=== PATIENT | male | born 1950 | race Caucasian/White ===

== ENCOUNTER → 2021-03-21 09:40 | Outpatient (CLI) | payer MEDICARE, OTHER, SELFPAY ==
[2021-03-21 10:37] LABS: Add Manual Diff / Slide Review NO; Basophils Absolute Auto 0 /uL (0-100); Basophils Percent Auto 0.5 % (0-2); Eosinophils Absolute Auto 100 /uL (0-450); Eosinophils Percent Auto 1.3 % (2-4); Hematocrit 48.6 % (41-53); Hemoglobin 15.9 g/dL (13.5-17.5); Lymphocytes Absolute Auto 1100 /uL (1100-4500); Lymphocytes Percent Auto 23.3 % (25-40); Mean Corpuscular HGB Conc 32.6 % (30-36); Mean Corpuscular Volume 94.9 fL (80-100); Monocytes Absolute Auto 500 /uL (0-900); Monocytes Percent Auto 10.1 % (3-14); Neutrophils Absolute Auto 3100 /uL (1500-7000); Neutrophils Percent Auto 64.8 % (50-75); Platelet Count 194 X10^3/uL (150-400); Red Blood Cell Count 5.12 X10^6/uL (4.5-5.9); Red Cell Distribution Width 15.3 % (11.6-14.8); White Blood Cell Count 4.8 X10^3/uL (4.5-11.0)
[2021-03-21 10:55] LABS: Hemoglobin A1C% w Est Avg Glu 5.4 % (4.0-6.0)
[2021-03-21 10:59] LABS: Alanine Aminotransferase 63 IU/L (<50); Albumin 4.1 g/dL (3.5-5.0); Albumin Globulin Ratio 1.5 (1.0-2.8); Alkaline Phosphatase 69 U/L (38-126); Aspartate Aminotransferase 61 IU/L (17-59); BUN Creatinine Ratio 18.9 (6-22); Bilirubin Total 0.4 mg/dL (0.2-1.3); Blood Urea Nitrogen 17 mg/dL (9-20); Calcium 9.1 mg/dL (8.4-10.2); Carbon Dioxide 31 mmol/L (22-32); Chloride 104 mmol/L (98-107); Cholesterol 111 mg/dL (140-199); Estimated Glomerular Filt Rate > 60.0 mL/min (>60); Globulin 2.8 g/dL (1.7-4.1); Glucose 89 mg/dL (80-110); HDL Cholesterol 46 mg/dL (40-60); HEMOLYSIS 22 (0-50); LDL Cholesterol Calculated 56 mg/dL (<100); Potassium 4.4 mmol/L (3.4-5.1); Sodium 138 mmol/L (137-145); Total Protein 6.9 g/dL (6.3-8.2); Triglycerides 44 mg/dL (35-150)
[2021-03-21 11:25] LABS: TSH w/ Reflex to FT4 2.19 uIU/mL (0.47-4.68)
[2021-03-21 11:29] LABS: Prostate Specific Antigen Scrn 0.905 ng/mL (0.1-4.0)
[2021-03-21 15:02] LABS: Appearance Urine UA CLEAR; Bilirubin Urine UA NEGATIVE (NEGATIVE); Color Urine UA YELLOW; Glucose Urine UA NEGATIVE (Negative); Ketones Urine UA NEGATIVE (NEGATIVE); Leukocyte Esterase Urine UA NEGATIVE (NEGATIVE); Nitrite Urine UA NEGATIVE (Negative); Occult Blood Urine UA NEGATIVE (Negative); Protein Urine UA TRACE (Negative); Urobilinogen Urine UA 0.2 E.U./dL (0.2); pH Urine UA 7.5 (4.5-8.0)
[2021-03-27 19:11] LABS: Percent Free Testosterone 4.86 % (1.50-4.20); Testosterone Free 104.16 ng/dL (5.00-21.00); Testosterone Total 2143.2 ng/dL (264.0-916.0)
== END ==
PROVIDERS: PCP Family Medicine; Referring Provider Family Medicine; Visit Provider Family Medicine
DX: R79.89 Other specified abnormal findings of blood chemistry (principal); Z12.5 Encounter for screening for malignant neoplasm of prostate; Z86.79 Personal history of other diseases of the circulatory system; G37.3 Acute transverse myelitis in demyelinating disease of central nervous system; G40.909 Epilepsy, unspecified, not intractable, without status epilepticus; I63.9 Cerebral infarction, unspecified; Z79.01 Long term (current) use of anticoagulants
CPT/HCPCS: 36415; 80053; 80061; 81003; 83036; 84402; 84403; 84443; 85025; G0103

== ENCOUNTER 2021-05-13 13:42 | Observation (INO) | payer MEDICARE, OTHER, SELFPAY ==
[2021-05-13 13:50] VITALS: BP 165/87; PULSE 54; RESP 24; TEMP 37; O2SAT 99
--- NOTE | 2021-05-13 13:58 | DI.RAD.S_ITS ---
PROCEDURE: XR CHEST 1V INDICATIONS: chest pain TECHNIQUE: One view of the chest was acquired. COMPARISON: None. FINDINGS: Surgical changes and devices: None. Lungs and pleura: Lungs are clear. No pleural effusions or pneumothorax. Calcific densities projecting to the inferior aspect of the right 7th rib. Mediastinum: Mediastinal contours appear normal. Heart size is normal. Bones and chest wall: No suspicious bony lesions. Overlying soft tissues appear unremarkable. IMPRESSION: 1. No acute cardiopulmonary disease. 2. Calcific densities projecting to the right lower lung zone overlapping the right 7th rib. Differential diagnosis include old granulomas, rib calcifications or pleural calcifications. A 2-view chest x-ray is recommended for follow-up evaluation. Dictated by: Aroldo Berger M.D. on 05/13/2021 at 15:08 Approved by: Aroldo Berger M.D. on 05/13/2021 at 15:09
[2021-05-13 14:39] LABS: Add Manual Diff / Slide Review NO; Basophils Absolute Auto 0 /uL (0-100); Basophils Percent Auto 0.4 % (0-2); Eosinophils Absolute Auto 100 /uL (0-450); Eosinophils Percent Auto 1.3 % (2-4); Hematocrit 45.2 % (41-53); Lymphocytes Absolute Auto 1300 /uL (1100-4500); Lymphocytes Percent Auto 24.9 % (25-40); Mean Corpuscular HGB Conc 33.3 % (30-36); Mean Corpuscular Hemoglobin 31.5 PG (26-34); Mean Corpuscular Volume 94.6 fL (80-100); Monocytes Absolute Auto 600 /uL (0-900); Monocytes Percent Auto 11.5 % (3-14); Neutrophils Absolute Auto 3200 /uL (1500-7000); Neutrophils Percent Auto 61.9 % (50-75); Platelet Count 174 X10^3/uL (150-400); Red Blood Cell Count 4.78 X10^6/uL (4.5-5.9); Red Cell Distribution Width 14.6 % (11.6-14.8); White Blood Cell Count 5.2 X10^3/uL (4.5-11.0)
[2021-05-13 14:52] LABS: Alanine Aminotransferase 61 IU/L (<50); Albumin 4.1 g/dL (3.5-5.0); Albumin Globulin Ratio 1.5 (1.0-2.8); Alkaline Phosphatase 67 U/L (38-126); Aspartate Aminotransferase 55 IU/L (17-59); BUN Creatinine Ratio 15.7 (6-22); Bilirubin Total 0.4 mg/dL (0.2-1.3); Blood Urea Nitrogen 14 mg/dL (9-20); Calcium 9.3 mg/dL (8.4-10.2); Carbon Dioxide 30 mmol/L (22-32); Chloride 104 mmol/L (98-107); Creatine Kinase 306 U/L (55-170); D Dimer < 200 ng/mL (<230); Estimated Glomerular Filt Rate > 60.0 mL/min (>60); Globulin 2.8 g/dL (1.7-4.1); Glucose 89 mg/dL (80-110); HEMOLYSIS < 15 (0-50); Lipase 293 U/L (23-300); Potassium 4.4 mmol/L (3.4-5.1); Sodium 139 mmol/L (137-145); Total Protein 6.9 g/dL (6.3-8.2)
[2021-05-13 15:01] LABS: NT-proBNP (BNP-Adult 18+) 100 pg/mL (<125)
[2021-05-13 15:04] LABS: Troponin I 0.019 ng/mL (0.01-0.034)
[2021-05-13 15:07] LABS: CKMB % Relative Index 2.8 % (1.5-5.0); Creatine Kinase MB 8.67 ng/mL (<2.37)
--- NOTE | 2021-05-13 15:49 | ED.DIZZY ---
HPI - Dizziness General Chief Complaint: Dizziness Stated Complaint: light headed spells Time Seen by Provider: 05/13/21 14:08 Source: patient Mode of arrival: Ambulatory History of Present Illness HPI Narrative: Patient is a 70-year-old male with history of CVA, atrial fibrillation with ablation is presenting with dizziness. He is quite active he runs at least 4 miles a day. Since May 05 every time he runs 1 mi into his run he gets dizzy and lightheaded. He needs to rest and then sometimes he is able to push through and other times not. He actually denies any chest pain or heart fluttering. He has no weakness numbness or tingling. It seems to be persistently getting worse. It is never at rest. That he really does not have any chest pain. His states that he has been asymptomatic with atrial fibrillation previously. He is currently in sinus rhythm. It also took a while for him to recognize he was having a stroke. She said he just presents differently with things. Related Data Home Medications Medication Instructions Recorded Confirmed baclofen 20 mg tablet 20 mg PO QID 10/09/20 05/13/21 carbamazepine 200 mg tablet 200 mg PO BID 10/09/20 05/13/21 gabapentin 400 mg capsule 400 mg PO QID cap 10/09/20 05/13/21 onabotulinumtoxinA [Botox] IM 10/09/20 10/09/20 atorvastatin 80 mg tablet 40 mg PO DAILY tab 10/10/20 05/13/21 warfarin 5 mg tablet 15 mg PO DAILY 05/13/21 05/13/21 Previous Rx's Medication Instructions Recorded NEEDLE #12 ea 03/19/21 Needle #12 ea 03/19/21 testosterone cypionate 200 mg/mL 200 mg IM Q2W #10 ml 04/11/21 intramuscular oil (Depo-Testosterone) Allergies Allergy/AdvReac Type Severity Reaction Status Date / Time No Known Drug Allergies Allergy Verified 10/09/20 14:12 Review of Systems Review of Systems Narrative: GENERAL: Denies chills, fatigue, malaise, fever, sweats, travel HEENT: Denies sinus pain, ear pain, sore throat, difficulty swallowing, neck pain RESPIRATORY: Denies dyspnea, cough, wheezing, hemoptysis, sputum. CARDIOVASCULAR: see HPI GASTROINTESTINAL: Denies nausea, vomiting, abdominal pain, diarrhea, constipation, melena. : Denies dysuria, frequency, incontinence, hematuria, urinary retention, flank pain. MUSCULOSKELETAL: Denies weakness, joint pain, or bony pain SKIN: No rash, no erythema, no pruritus NEUROLOGIC: dizziness. Denies weakness, headache, numbness, change in speech, confusion PSYCHIATRIC: No concerning psychosocial issues. 12 point review of systems is negative except for those stated above and HPI Patient History Medical History (Updated 05/13/21 @ 16:32 by Hawa Velez DO) Anticoagulated on warfarin Anticoagulation adequate Contusion of right elbow CVA (cerebral vascular accident) Epilepsy History of atrial fibrillation Low testosterone in male Transverse myelitis Social History household members: spouse Smoking Status: Former smoker alcohol intake: former Smoking Status: Former smoker Exam Initial Vital Signs Initial Vital Signs: Vital Signs Temperature 98.6 F 05/13/21 13:50 Pulse Rate 54 L 05/13/21 13:50 Respiratory Rate 24 05/13/21 13:50 Blood Pressure 165/87 H 05/13/21 13:50 Pulse Oximetry 99 05/13/21 13:50 GENERAL: Well-appearing active 70-year-old male HEENT: Head atraumatic,EOMI, pupils reactive, face symmetric, [moist] mucous membranes CARDIOVASCULAR: Regular rate and rhythm without murmurs, rubs or gallops. RESPIRATORY: Breath sounds equal bilaterally, no wheezes rales or rhonchi. ABDOMEN: Soft, nontender. Normoactive bowel sounds all 4 quadrants. No guarding or rebound EXTREMITIES: Normal range of motion, no clubbing or edema. Neurovascularly intact NEUROLOGICAL: Alert and oriented x4.Normal gait and speech. SKIN: Warm, dry, no laceration, no petechiae, no rashes or lesions. Course Orders Ordered: ED Orders 05/13/21 13:58 XR chest 1V Stat 05/13/21 14:08 EKG-12 Lead Stat 05/13/21 14:30 Complete Blood Count AUTO DIFF Stat Comprehensive Metabolic Panel Stat D Dimer Stat Lipase Stat NT-proBNP (BNP-Adult 18+) Stat Partial Thromboplastin Time Stat Prothrombin Time INR Stat Troponin & CK Cardiac Panel Stat 05/13/21 16:45 COVID19 - ADMIT (RUFFLING HEMMER AUTOMATIC swab/PCR) Stat Vital Signs Vital signs: Vital Signs - 8 hr 05/13/21 13:50 05/13/21 16:50 Temperature 98.6 F Pulse Rate 54 L 46 L Respiratory Rate 24 16 Blood Pressure 165/87 H 153/74 H Pulse Oximetry 99 100 MDM - Dizziness Lab Data Result diagrams: 05/13/21 14:30 05/13/21 14:30 Labs: Lab Results 05/13/21 05/13/21 05/13/21 Range/Units 14:30 14:30 14:30 WBC 5.2 (4.5-11.0) X10^3/uL RBC 4.78 (4.5-5.9) X10^6/uL Hgb 15.0 (13.5-17.5) g/dL Hct 45.2 (41-53) % MCV 94.6 (80-100) fL MCH 31.5 (26-34) PG MCHC 33.3 (30-36) % RDW 14.6 (11.6-14.8) % Plt Count 174 (150-400) X10^3/uL Neut % (Auto) 61.9 (50-75) % Lymph % (Auto) 24.9 L (25-40) % [place] % (Auto) 11.5 (3-14) % Eos % (Auto) 1.3 L (2-4) % Baso % (Auto) 0.4 (0-2) % Neut # (Auto) 3200 (5002-4830) /uL Lymph # (Auto) 1300 (4142-3076) /uL [place] # (Auto) 600 (0-900) /uL Eos # (Auto) 100 (0-450) /uL Baso # (Auto) 0 (0-100) /uL PT (10.1-12.7) SECONDS INR (0.9-1.3) APTT (26.4-36.2) SECONDS D-Dimer < 200 (<230) ng/mL Sodium 139 (137-145) mmol/L Potassium 4.4 (3.4-5.1) mmol/L Chloride 104 (98-107) mmol/L Carbon Dioxide 30 (22-32) mmol/L BUN 14 (9-20) mg/dL Creatinine 0.89 (0.66-1.25) mg/dL Estimated GFR > 60.0 (>60) mL/min BUN/Creatinine Ratio 15.7 (6-22) Glucose 89 (80-110) mg/dL Calcium 9.3 (8.4-10.2) mg/dL Total Bilirubin 0.4 (0.2-1.3) mg/dL AST 55 (17-59) IU/L ALT 61 H (<50) IU/L Alkaline Phosphatase 67 (38-126) U/L Total Creatine Kinase 306 H (55-170) U/L CK-MB (CK-2) 8.67 H (<2.37) ng/mL CK-MB (CK-2) Rel Index 2.8 (1.5-5.0) % Troponin I 0.019 (0.01-0.034) ng/mL NT-Pro-B Natriuret Pep (<125) pg/mL Total Protein 6.9 (6.3-8.2) g/dL Albumin 4.1 (3.5-5.0) g/dL Globulin 2.8 (1.7-4.1) g/dL Albumin/Globulin Ratio 1.5 (1.0-2.8) Lipase 293 (23-300) U/L SARS-CoV-2 (PCR) (Negative) 05/13/21 05/13/21 05/13/21 Range/Units 14:30 14:30 16:45 WBC (4.5-11.0) X10^3/uL RBC (4.5-5.9) X10^6/uL Hgb (13.5-17.5) g/dL Hct (41-53) % MCV (80-100) fL MCH (26-34) PG MCHC (30-36) % RDW (11.6-14.8) % Plt Count (150-400) X10^3/uL Neut % (Auto) (50-75) % Lymph % (Auto) (25-40) % [place] % (Auto) (3-14) % Eos % (Auto) (2-4) % Baso % (Auto) (0-2) % Neut # (Auto) (4491-0097) /uL Lymph # (Auto) (1703-6012) /uL [place] # (Auto) (0-900) /uL Eos # (Auto) (0-450) /uL Baso # (Auto) (0-100) /uL PT 24.8 H (10.1-12.7) SECONDS INR 2.2 H (0.9-1.3) APTT 35 (26.4-36.2) SECONDS D-Dimer (<230) ng/mL Sodium (137-145) mmol/L Potassium (3.4-5.1) mmol/L Chloride (98-107) mmol/L Carbon Dioxide (22-32) mmol/L BUN (9-20) mg/dL Creatinine (0.66-1.25) mg/dL Estimated GFR (>60) mL/min BUN/Creatinine Ratio (6-22) Glucose (80-110) mg/dL Calcium (8.4-10.2) mg/dL Total Bilirubin (0.2-1.3) mg/dL AST (17-59) IU/L ALT (<50) IU/L Alkaline Phosphatase (38-126) U/L Total Creatine Kinase (55-170) U/L CK-MB (CK-2) (<2.37) ng/mL CK-MB (CK-2) Rel Index (1.5-5.0) % Troponin I (0.01-0.034) ng/mL NT-Pro-B Natriuret Pep 100 (<125) pg/mL Total Protein (6.3-8.2) g/dL Albumin (3.5-5.0) g/dL Globulin (1.7-4.1) g/dL Albumin/Globulin Ratio (1.0-2.8) Lipase (23-300) U/L SARS-CoV-2 (PCR) Negative (Negative) Imaging Data Chest x-ray: Radiologist's Impression: PROCEDURE: XR CHEST 1V INDICATIONS: chest pain TECHNIQUE: One view of the chest was acquired. COMPARISON: None. FINDINGS: Surgical changes and devices: None. Lungs and pleura: Lungs are clear. No pleural effusions or pneumothorax. Calcific densities projecting to the inferior aspect of the right 7th rib. Mediastinum: Mediastinal contours appear normal. Heart size is normal. Bones and chest wall: No suspicious bony lesions. Overlying soft tissues appear unremarkable. IMPRESSION: 1. No acute cardiopulmonary disease. 2. Calcific densities projecting to the right lower lung zone overlapping the right 7th rib. Differential diagnosis include old granulomas, rib calcifications or pleural calcifications. A 2-view chest x-ray is recommended for follow-up evaluation. Dictated by: Aroldo Berger M.D. on 05/13/2021 at 15:08 ECG Data Interpretation: Normal sinus rhythm rate 47 FL interval 196 QRS 98 QTC [address] changes or T-wave inversions T-waves do look slightly tall MDM Narrative Medical decision making narrative: Patient is having these symptoms while running. He gets dizzy and lightheaded he adamantly denies any chest pain. states that he does not present with things in the normal way. It is possible he is going in his to in a arrhythmia which is causing him to be dizzy versus this is a cardiac equivalent and acute coronary syndrome. He certainly has no symptoms at rest. He has a freight forwarder in over like over that is quite far. An symptoms seem to be progressing. At this time he agrees to stay for stress test and rule out. He does need an event monitor as well. Dr. rbaswell updated patient's symptoms test results and agrees for observation Discharge Plan Departure Patient Disposition: Admitted as Observation Clinical Impression: Chest pain Admit Date/Time: 05/13/21 17:22 Admit Provider: Polina Braswell
[2021-05-13 16:43] LABS: INR 2.2 (0.9-1.3); Prothrombin Time 24.8 SECONDS (10.1-12.7)
[2021-05-13 16:46] LABS: PTT Partial Thromboplastin Tim 35 SECONDS (26.4-36.2)
[2021-05-13 16:50] VITALS: BP 153/74; PULSE 46; RESP 16; O2SAT 100
[2021-05-13 17:30] VITALS: BMI 28.4
[2021-05-13 17:43] LABS: COVID19 - ADMIT (NP swab/PCR) Negative (Negative)
[2021-05-13 17:55] VITALS: BP 139/76; PULSE 40; RESP 16; TEMP 36.3; O2SAT 99
--- NOTE | 2021-05-13 18:55 | PC.NURSE ---
Addendum entered by Jo-Ann Schultz R.N. 05/13/21 20:58: Pt seen by EMERGENCY DEPARTMENT AIDE Denies any discomfort,. HL remains intact. Tele reading remains unchanged from previously noted by ICU staff. Call light w/in reach, pt independent in room & calls appropriately Continue w/plan of care. Original Note: Pt arrived to RM 218 from ED @ 1725 Alet/oriented, denies any discomfort at this time. Lungs clear, SpO2 99% RA HL LAC intact/patent. Tele placed, showing SB/first degree AVB/BBB prolonged QT per ICU staff Awaiting for MD to see. Pt oriented to room & call system.
--- NOTE | 2021-05-13 19:32 | DI.NM.S_ITS ---
PROCEDURE: NM KVNG PERF SPECT R&S PHARM Rest and pharmacological stress myocardial perfusion SPECT with gated imaging and ejection fraction RADIOPHARMACEUTICAL: 12.2 mCi Tc-99m tetrafosmin IV at rest and 25.0 mCi Tc-99m tetrafosmin IV at peak effect of pharmacological stress. [id number] was performed. INDICATIONS: exertional dyspnea, hx cva r/o acs TECHNIQUE: Radiopharmaceutical was injected at peak stress test, and also at rest. SPECT images were obtained. SPECT myocardial perfusion images were displayed in short axis, horizontal long axis, and vertical long axis views. Gated images were reviewed using D[employer] software. COMPARISON: None. CARDIAC STRESS: A pharmacologic stress test was performed under the supervision of an attending staff, using an infusion of lexiscan 0.4mg IV x1. Hemodynamic data: There is normal blood pressure and heart rate response to pharmacologic stress. Symptoms: The patient denied anginal chest pain. Aminophylline: none EKG: No diagnostic changes of ischemia; no ectopy. FINDINGS: Raw data: There is good myocardial uptake of radiotracer. No significant motion artifacts. Akrg-[id number] ratio is 0.39 (normal is less than 0.38 for tetrafosmin tracer). Left ventricle function: Gated images demonstrate normal left ventricular wall thickening. No segmental wall motion abnormalities. No transient ischemic dilation; TID is 1.09 (normal less than 1.3). Left ventricle resting end diastolic volume is 196 mL. Left ventricle stress ejection fraction is 58%; normal range is above 45%. Myocardial perfusion: There is a severe apical defect at rest that improved with stress images, suggesting artifact but prior small non-transmural infarct can't be excluded. No ischemia. No prone images available. IMPRESSION: Abnormal nuclear stress test with possible prior non-transmural infarction. No ischemia. 1) There is a severe apical defect at rest that improved with stress images, suggesting artifact but prior small non-transmural infarct can't be excluded. No ischemia. No prone images available. 2) Enlarged left ventricle (resting EDV 196cc) with normal wall motion and normal systolic function (EF post stress 58%). 3) No ECG evidence of ischemia. 4) No angina during the study. 5) No prior nuclear stress test available for comparison. Findings discussed with Dr. Roque at 1645 on 05/14/2021. Dictated by: Kelly Khoury MD on 05/14/2021 at 16:45 Approved by: Kelly Khoury MD on 05/14/2021 at 16:50
[2021-05-13 19:53] LABS: Magnesium 1.9 mg/dL (1.6-2.3)
--- NOTE | 2021-05-13 21:00 | P.HP_ITS ---
History of Present Illness History of Present Illness Date Patient Seen: 05/13/21 Time Patient Seen: 20:00 Chief complaint: Exertional dyspnea, lightheaded w/exertion Narrative: Vasiliy Reyez was a 7-year-old male with a history of a atrial fibrillation with a cardiac ablation done and anticoagulated on warfarin, CVA in 2014, in 2013, seizure disorder, transverse myelitis, history of multiple head concussions that presented to the emergency department after a week's history of new onset exertional dyspnea. He is a runner normally runs about 4 miles a day. Ever since May 05, he started developing shortness of breath and lightheadedness, and feeling like he is going to fall about 1 mi into his run. He states that he has to sit down and rest for a little bit and then he is able to resume and complete the rest of his run. He does not drink water while he is running and normally a 4 mile run will take him approximately 1 hour. He had a CVA in 2014 which affected his left side and states that increasingly his left leg feels like it ?tight? not a cramp but more like a spasm sensation. He states that when his blood pressure increases he does have to look at through one eye for greater visual acuity. He has been seen in the past by a neuro telegraph equipment maintainer and was recently seen by Island telegraph equipment maintainer in they did not find any retinal artery occlusion or retinopathy. He does have a history of palpations which occurs while is running, he denies nausea vomiting, abdominal pain, dysuria, diarrhea or constipation, easy bleeding bruising even though he is taking warfarin. Per the patient he is on testosterone replacement therapy due to a scrotal injury he had a number of years ago for which he underwent 3 surgeries and his last testosterone level was quite high and his PCP has been trying to adjust his dosage downward. He takes baclofen for the leg cramps and states that they are also trying to taper that dose down. 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 He does endorse having had a cardiac catheterization, but unable to tell me when or whether it was associated with the ablation. A one-view chest x-ray was ordered in the ED and was unimpressive. Patient is afebrile, blood pressure 139/76, heart rate 40, respiratory rate of 16, oxygen saturation of 99% on room air, he weighs 103 kg with a BMI of 28.4. 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 Father at age 93 colon CA) Social History: household members spouse Prior Living Arrangements Apartment/Condo Safety & Behavioral: Feels Safe in Current Yes Environment Been Physically Hurt or No Threatened By a Person Suicidal Ideation Description None Suicide Plan Description No Plan Tobacco & Substance use: Smoking Status Former smoker alcohol intake former Substance Use Type does not use Meds Home Medications and Allergies Home Medications Medication Instructions Recorded Confirmed Type baclofen 20 mg tablet 20 mg PO QID 10/09/20 05/13/21 History carbamazepine 200 mg tablet 200 mg PO BID 10/09/20 05/13/21 History gabapentin 400 mg capsule 400 mg PO QID cap 10/09/20 05/13/21 History onabotulinumtoxinA [Botox] 1 units IM 10/09/20 10/09/20 History atorvastatin 80 mg tablet 40 mg PO DAILY tab 10/10/20 05/13/21 History NEEDLE #12 ea 03/19/21 05/13/21 Rx Needle #12 ea 03/19/21 05/13/21 Rx testosterone cypionate 200 mg/mL 200 mg IM Q2W #10 ml 04/11/21 05/13/21 Rx intramuscular oil (Depo-Testosterone) warfarin 5 mg tablet 15 mg PO DAILY 05/13/21 05/13/21 History Allergies Allergy/AdvReac Type Severity Reaction Status Date / Time No Known Drug Allergies Allergy Verified 10/09/20 14:12 Review of Systems Review of Systems ROS: Yes All systems reviewed with the patient and are negative except as otherwise documented Exam Vital Signs (past 8 hours): - 05/13/21 13:50 05/13/21 16:50 05/13/21 17:55 Temperature 98.6 F 97.4 F L Pulse Rate 54 L 46 L 40 L Respiratory Rate 24 16 16 Blood Pressure 165/87 H 153/74 H 139/76 Pulse Oximetry 99 100 99 Oxygen Delivery Method Room Air Narrative Exam Narrative: Gen: Alert, oriented, well-developed 70 y.o. male, appears comfortable HEENT: normocephalic, atraumatic, conjunctiva clear, sclera non-icteric, oral mucosa pink and moist Neck: supple, full ROM, no JVD, trachea is midline Resp: Lungs CTA, non-labored breathing CV: RRR, no murmur or rubs Abd: soft, non-tender, normoactive BTs Skin: Bronzed appearance, no lesions or rashes, dry and intact Neuro: Alert and oriented X 4 w/no focal deficits. Speech clear and coherent. Extremities: moves all 4 extremities, is ambulatory, negative Mila?s sign Psyche: normal mood and affect. Objective ECG Impression: Appears to have a first degree heart block, bundle branch identified by nursing on telemetry strips. Imaging Chest x-ray: Radiologist's impression: IMPRESSION: 1. No acute cardiopulmonary disease. 2. Calcific densities projecting to the right lower lung zone overlapping the right 7th rib. Differential diagnosis include old granulomas, rib calcifications or pleural calcifications. A 2-view chest x-ray is recommended for follow-up evaluation. Labs Result Diagrams: 05/13/21 14:30 05/13/21 14:30 Labs: Laboratory Results - last 24 hr 05/13/21 05/13/21 05/13/21 14:30 14:30 14:30 WBC 5.2 RBC 4.78 Hgb 15.0 Hct 45.2 MCV 94.6 MCH 31.5 MCHC 33.3 RDW 14.6 Plt Count 174 Neut % (Auto) 61.9 Lymph % (Auto) 24.9 L [place] % (Auto) 11.5 Eos % (Auto) 1.3 L Baso % (Auto) 0.4 Neut # (Auto) 3200 Lymph # (Auto) 1300 [place] # (Auto) 600 Eos # (Auto) 100 Baso # (Auto) 0 PT INR APTT D-Dimer < 200 Sodium 139 Potassium 4.4 Chloride 104 Carbon Dioxide 30 BUN 14 Creatinine 0.89 Estimated GFR > 60.0 BUN/Creatinine Ratio 15.7 Glucose 89 Calcium 9.3 Magnesium Total Bilirubin 0.4 AST 55 ALT 61 H Alkaline Phosphatase 67 Total Creatine Kinase 306 H CK-MB (CK-2) 8.67 H CK-MB (CK-2) Rel Index 2.8 Troponin I 0.019 NT-Pro-B Natriuret Pep Total Protein 6.9 Albumin 4.1 Globulin 2.8 Albumin/Globulin Ratio 1.5 Lipase 293 SARS-CoV-2 (PCR) 05/13/21 05/13/21 05/13/21 14:30 14:30 14:30 WBC RBC Hgb Hct MCV MCH MCHC RDW Plt Count Neut % (Auto) Lymph % (Auto) [place] % (Auto) Eos % (Auto) Baso % (Auto) Neut # (Auto) Lymph # (Auto) [place] # (Auto) Eos # (Auto) Baso # (Auto) PT 24.8 H INR 2.2 H APTT 35 D-Dimer Sodium Potassium Chloride Carbon Dioxide BUN Creatinine Estimated GFR BUN/Creatinine Ratio Glucose Calcium Magnesium 1.9 Total Bilirubin AST ALT Alkaline Phosphatase Total Creatine Kinase CK-MB (CK-2) CK-MB (CK-2) Rel Index Troponin I NT-Pro-B Natriuret Pep 100 Total Protein Albumin Globulin Albumin/Globulin Ratio Lipase SARS-CoV-2 (PCR) 05/13/21 16:45 WBC RBC Hgb Hct MCV MCH MCHC RDW Plt Count Neut % (Auto) Lymph % (Auto) [place] % (Auto) Eos % (Auto) Baso % (Auto) Neut # (Auto) Lymph # (Auto) [place] # (Auto) Eos # (Auto) Baso # (Auto) PT INR APTT D-Dimer Sodium Potassium Chloride Carbon Dioxide BUN Creatinine Estimated GFR BUN/Creatinine Ratio Glucose Calcium Magnesium Total Bilirubin AST ALT Alkaline Phosphatase Total Creatine Kinase CK-MB (CK-2) CK-MB (CK-2) Rel Index Troponin I NT-Pro-B Natriuret Pep Total Protein Albumin Globulin Albumin/Globulin Ratio Lipase SARS-CoV-2 (PCR) Negative Assessment & Plan Assessment & Plan narrative: Vasiliy Reyez will be observed overnight to further work up his exertional dys pnea and to rule out ACS 1. Chest pain r/o ACS, acute, present on admission * Echo in am * Pharmacological stress test * He did not receive any nitro in the ED as he is not complaining of chest pain * EKG shows no ischemic changes 2. Atrial fibrillation anticoagulated on warfarin with a therpapeutic INR of 2.2 * Patient had a cardiac ablation in 2013 * Due to patient's low heart rate presumably from daily exercise, will not need a rate limiting medication * Continue home dose of warfarin 15 mg daily and monitor INR daily, adjust as needed for a goal INR of 2.0-3.0 3. Seizure disorder, appears to be well controlled * Has had 2 grand mals, last one in 2006 * Continue home dose of carbamazepime 200 mg po bid * Obtaining a carbamazepime level 3. Hypertension, well controlled * Currently not on any anti-hypertensives. 4. HLD * Patient's lipid panel last done in March of this year. Will repeat a fasting in the am. * Increase atorvastatin from 40 mg to 80 mg po at bedtime Risk stratification * Fasting lipid panel for the am * Last A1c 5.7% done on 03/21, will repeat VTE prophylaxis: Wells risk score: 0 Patient is adequately anticoagualated on warfarin 15 mg po at bedtime Consults: none Patient is observation status as his stay is not likely to exceed 2 midnights. FEN: Saline lock, heart healty diet, BMP, liver enzymes and magnesium in the am. Dispo: probable discharge to home Code Status: Full Code as discussed with patient Radha Reyez is his , surrogate and POA COVID-19 COVID-19 status: Negative Result date/Date tested (Pos, Neg/Pending): 05/13/21 Scores Wells' Criteria for PE Clinical signs and symptoms of DVT: No PE is #1 Dx or equally likely: No Heart rate > 100: No Immobilization at least 3 days or surg in previous 4 weeks: No History of PE or DVT: No Hemoptysis: No Malignancy w/Treatment within 6 months or palliative: No Wells' PE Score total: 0 Quality VTE Deep Vein Thrombosis/Pulmonary Embolism Present on Admission: No MIPS - Admit I confirm the patient?s Advance Care Plan is present, Code status is documented, Surrogate decision maker is in patient?s record [If Yes, STOP here]: Yes
[2021-05-13 21:33] LABS: Creatine Kinase 273 U/L (55-170)
[2021-05-13 21:48] LABS: CKMB % Relative Index 2.6 % (1.5-5.0); Creatine Kinase MB 7.15 ng/mL (<2.37)
[2021-05-13] MEDS: GABAPENTIN 400 MG CAPSULE PO (22:12)
[2021-05-13] MEDS: carBAMazepine 200 MG TABLET PO (22:12)
[2021-05-13] MEDS: BACLOFEN 10 MG TABLET 20 MG PO (22:12)
[2021-05-13 23:10] VITALS: BP 121/65; PULSE 49; RESP 20; TEMP 36.8; O2SAT 99
[2021-05-14] VITALS (7 sets, daily range): BP systolic 122–143; BP diastolic 66–75; PULSE 45–51; RESP 15–16; TEMP 36.3–36.6; O2SAT 96–99
--- NOTE | 2021-05-14 | DI.ECHO.S_ITS ---
[place] [facility]---------+ [facility] +---------+ : : [address] : : : : [id number] : : : : Phone: [phone]+ Echocardiogram Report + + :Name: PRAKASH ADAIR Study Date: 05/14/2021 Height: 75 in : :[facility] ReadingLocation: Weight: 227 lb : : Gender: Male BSA: 2.3 m2 : :: 1950 Age: 70 yrs BP: 168/87 mmHg: :Reason For Study: EXERTIONAL DYSPNEA, AF : :Ordering Physician: KARINA VEGA : :SETTLEMENT AGENT Performed By: Daily Goel : :Referring: KARINA VEGA : + + Interpretation Summary Borderline dilated left ventricle with ejection fraction 55-60%. Proximal septal thickening is noted. Mildly dilated right ventricle with normal right ventricular systolic function. Severely dilated left atrium. Mild to moderate mitral regurgitation. Mild tricuspid regurgitation. The right ventricular systolic pressure is estimated to be at least 28 mmHg based on an estimated right atrial pressure of 3 mm Hg. Mildly enlarged ascending aorta. Procedure: A two-dimensional transthoracic echocardiogram with color flow and Doppler was performed. The study quality was technically adequate. There is no prior echocardiogram noted for this patient. The patient was in sinus bradycardia with heart rates between 41-52 bpm during the exam. Left Ventricle: Proximal septal thickening is noted. The left ventricle is borderline dilated. The estimated left ventricular end diastolic volume is 115 ml. The ejection fraction is estimated to be 55-60%. There are no focal wall motion abnormalities. Right Ventricle: The right ventricle is mildly dilated. The right ventricular systolic function is normal. Atria: The left atrium is severely dilated. Right atrial size is normal. There is no Doppler evidence for an interatrial shunt. Mitral Valve: The mitral valve leaflets appear borderline thickened, but open well. There is mild to moderate mitral regurgitation. Aortic Valve: The aortic valve is trileaflet. The aortic valve opens well. There is no aortic valve stenosis. No aortic regurgitation is present. Tricuspid Valve: The tricuspid valve is normal in structure and function. There is mild tricuspid regurgitation. The right ventricular systolic pressure is estimated to be at least 28 mmHg based on an estimated right atrial pressure of 3 mm Hg. Pulmonic Valve: The pulmonic valve leaflets are thin and pliable; valve motion is normal. There is mild to moderate pulmonic regurgitation. Great Vessels: The aortic root is normal size. The ascending aorta is mildly enlarged. The IVC is of normal diameter and collapses greater than 50% with a sniff. This suggests a low right atrial pressure of 3 mm Hg. Pericardium/ Pleura There is no pericardial effusion. There is no pleural effusion. MMode/2D Measurements & Calculations LVIDd: 6.4 cm LVOT diam: 2.3 cm LVIDs: 4.8 cm Ao root diam: 3.6 cm FS: 24.8 % asc Aorta Diam: 3.8 cm IVSd: 1.1 cm Ao Arch Diam (Prox Trans): 3.1 cm LVPWd: 1.0 cm LV gil. diameter/BSA (cm/m^2): 2.8 LV sys. diameter/BSA (cm/m^2): 2.1 LA A2 area: 31.1 cm2 RA long axis: 6.7 cm LA A4 area: 24.9 cm2 RA area: 22.2 cm2 LA length (vol): 6.0 cm RA vol: 62.5 ml LA vol: 110.4 ml RA : 27.0 ml/m2 LA vol index: 47.7 ml/m2 IVC diam: 2.0 cm TAPSE: 2.4 cm Doppler Measurements & Calculations Ao V2 max: 133.0 cm/sec LVOT Max Eliud: 58.9 cm/sec Ao V2 mean: 93.6 cm/sec LV V1 max P.4 mmHg Ao max P.1 mmHg LV V1 VTI: 14.8 cm Ao mean P.9 mmHg DEBRA(I,D): 2.2 cm2 Ao V2 VTI: 29.2 cm DEBRA(V,D): 1.9 cm2 sev ratio: 0.51 DEBRA indexed to BSA (cm^2/m^2): 0.94 MV E max eliud: 76.9 cm/sec TR max eliud: 247.8 cm/sec MV A max eliud: 43.7 cm/sec TR max P.6 mmHg MV E/A: 1.8 PA V2 max: 89.9 cm/sec Med Peak E' Eliud: 6.9 cm/sec PA V2 mean: 61.3 cm/sec E/E' med: 11.1 PA mean P.6 mmHg Lat Peak E' Eliud: 10.5 cm/sec PA pr(Accel): 43.0 mmHg E/E' lat: 7.3 E/e' average: 9.2 MV dec time: 0.25 sec SV(LVOT): 63.6 ml Electronically signed by: Etelvina newman Energy Physician:05/14/2021 12:39 PM
[2021-05-14 02:34] LABS: Creatine Kinase 213 U/L (55-170)
[2021-05-14 02:47] LABS: Troponin I 0.022 ng/mL (0.01-0.034)
[2021-05-14 02:50] LABS: CKMB % Relative Index 2.7 % (1.5-5.0); Creatine Kinase MB 5.84 ng/mL (<2.37)
[2021-05-14 03:11] LABS: Thyroid Stimulating Hormone 3.06 uIU/mL (0.47-4.68)
--- NOTE | 2021-05-14 04:00 | PC.NURSE ---
Patient has been NPO since 299 for a cardiac perfusion test today. No time known at this time.
[2021-05-14 05:50] LABS: Add Manual Diff / Slide Review NO; Basophils Absolute Auto 0 /uL (0-100); Basophils Percent Auto 0.5 % (0-2); Eosinophils Absolute Auto 100 /uL (0-450); Hematocrit 43.9 % (41-53); Hemoglobin 14.7 g/dL (13.5-17.5); Lymphocytes Absolute Auto 1400 /uL (1100-4500); Lymphocytes Percent Auto 29.3 % (25-40); Mean Corpuscular HGB Conc 33.4 % (30-36); Mean Corpuscular Hemoglobin 31.7 PG (26-34); Mean Corpuscular Volume 94.9 fL (80-100); Monocytes Absolute Auto 500 /uL (0-900); Monocytes Percent Auto 11.6 % (3-14); Neutrophils Absolute Auto 2700 /uL (1500-7000); Neutrophils Percent Auto 56.6 % (50-75); Platelet Count 159 X10^3/uL (150-400); Red Blood Cell Count 4.63 X10^6/uL (4.5-5.9); Red Cell Distribution Width 14.9 % (11.6-14.8); White Blood Cell Count 4.7 X10^3/uL (4.5-11.0)
[2021-05-14 06:09] LABS: BUN Creatinine Ratio 14.6 (6-22); Blood Urea Nitrogen 13 mg/dL (9-20); Calcium 8.9 mg/dL (8.4-10.2); Carbon Dioxide 32 mmol/L (22-32); Chloride 106 mmol/L (98-107); Estimated Glomerular Filt Rate > 60.0 mL/min (>60); Glucose 95 mg/dL (80-110); HEMOLYSIS 30 (0-50); Potassium 4.3 mmol/L (3.4-5.1); Sodium 139 mmol/L (137-145)
[2021-05-14 06:10] LABS: Alanine Aminotransferase 56 IU/L (<50); Albumin 3.7 g/dL (3.5-5.0); Albumin Globulin Ratio 1.4 (1.0-2.8); Alkaline Phosphatase 66 U/L (38-126); Aspartate Aminotransferase 51 IU/L (17-59); Bilirubin Total 0.5 mg/dL (0.2-1.3); Bilirubin Unconjugated 0.4 mg/dL (0.0-1.1); Globulin 2.7 g/dL (1.7-4.1); HEMOLYSIS 29 (0-50); Total Protein 6.4 g/dL (6.3-8.2)
[2021-05-14 06:13] LABS: INR 1.9 (0.9-1.3); Prothrombin Time 21.6 SECONDS (10.1-12.7)
[2021-05-14 06:17] LABS: Cholesterol 119 mg/dL (140-199); HDL Cholesterol 50 mg/dL (40-60); LDL Cholesterol Calculated 53 mg/dL (<100); Triglycerides 80 mg/dL (35-150)
[2021-05-14] MEDS: GABAPENTIN 400 MG CAPSULE PO ×3 (09:33→17:27)
[2021-05-14] MEDS: carBAMazepine 200 MG TABLET PO (09:33)
[2021-05-14] MEDS: WARFARIN 5 MG TABLET 15 MG PO (09:33)
[2021-05-14] MEDS: BACLOFEN 10 MG TABLET 20 MG PO ×3 (09:33→17:27)
[2021-05-14] MEDS: ATORVASTATIN 20 MG TABLET 80 MG PO (09:33)
--- NOTE | 2021-05-14 15:07 | CM.DANOTE ---
DCP/Assessment: Reviewed chart. Patient is a 70yr old male admitted to [facility] with SOB. PCP is Aristides Lewis. Primary payor is 1)Medicare 2)[facility]. Met with patient this afternoon explained CM/SW role. Patient reports that he is completely I in all ADL's. Patient resides with spouse [place] Per provider patient to undergo stress test today and if negative will d/c. No identified d/c planning needs at this time. P: Home when stable. CLARISSE Rose Discharge Planning/Care Management CM Discharge Assessment Start: 05/14/21 14:56 Freq: Status: Active Protocol: Document 05/14/21 14:56 KJS (Rec: 05/14/21 15:07 KJS [id number]) Discharge Planning Assessment Assigned Rn Float CLARISSE Rose Contact Information Polina Townsend # Advance Directives? No Advance Directives on File No History Provided By Medical Record Prior Living Arrangements Apartment/Condo Household Members spouse Type of transporation used prior to Drives own vehicle admit Independent with ADL's Yes Is patient alert and oriented? Yes Caregiver for Another No Barriers to Discharge No Discharge Plan Home Transportation Arrangement Family to provide transport Referrals Initiated None needed Whiteboard Updated in Patient Room with Yes name and ext. # of Rn Float Review Status In Process Next Review Type Continued Stay Review
--- NOTE | 2021-05-14 17:30 | P.DS_ITS ---
History of Present Illness History of Present Illness Date Patient Seen: 05/15/21 Time Patient Seen: 18:28 Chief complaint: Exertional dyspnea, lightheaded w/exertion Narrative: Per NOE Woody: Vasiliy Reyez is a 70-year-old male with a history of a atrial fibrillation with a cardiac ablation done and anticoagulated on warfarin, CVA in 2014, in 2013, seizure disorder, transverse myelitis, history of multiple head concussions that presented to the emergency department after a week's history of new onset exertional dyspnea. He is a runner normally runs about 4 miles a day. Ever since May 05, he started developing shortness of breath and lightheadedness, and feeling like he is going to fall about 1 mi into his run. He states that he has to sit down and rest for a little bit and then he is able to resume and complete the rest of his run. He does not drink water while he is running and normally a 4 mile run will take him approximately 1 hour. He had a CVA in 2014 which affected his left side and states that increasingly his left leg feels like it ?tight? not a cramp but more like a spasm sensation. He states that when his blood pressure increases he does have to look at through one eye for greater visual acuity. He has been seen in the past by a neuro foreign exchange student coordinator and was recently seen by [place] foreign exchange student coordinator in they did not find any retinal artery occlusion or retinopathy. He does have a history of palpations which occurs while is running, he denies nausea vomiting, abdominal pain, dysuria, diarrhea or cons tipation, easy bleeding bruising even though he is taking warfarin. Per the patient he is on testosterone replacement therapy due to a scrotal injury he had a number of years ago for which he underwent 3 surgeries and his last testosterone level was quite high and his PCP has been trying to adjust his dosage downward. He takes baclofen for the leg cramps and states that they are also trying to taper that dose down. 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 He does endorse having had a cardiac catheterization, but unable to tell me when or whether it was associated with the ablation. A one-view chest x-ray was ordered in the ED and was unimpressive. Patient is afebrile, blood pressure 139/76, heart rate 40, respiratory rate of 16, oxygen saturation of 99% on room air, he weighs 103 kg with a BMI of 28.4. WBC generally within normal limits, PT INR is 2.2 and 24.8 within goal, D-dimer is negative, BMP is within normal limits, is a mildly elevated ALT at 61, elevated total creatinine kinase at 273 and a CK-MB of 8.67, troponins are within Discharge Providers Provider Date of admission: 05/13/21 17:22 Discharge Date: 05/14/21 Primary care physician: Aristides Lewis DO Discharge provider: Ish Roque DO Summary Hospital Course Discharge Diagnosis: 1. Exertional dizziness and dyspnea on exertion, acute, present on admission, improved 2. Atrial fibrillation anticoagulated on warfarin with a therpapeutic INR of 2.2 3. Seizure disorder, appears to be well controlled 3. Hypertension, well controlled 4. HLD 5. Prior CVA Hospital Course: This is a 70-year-old male with a past medical history of atrial fibrillation on warfarin with a prior ablation, prior seizure disorder that is currently well controlled, hypertension, and hyperlipidemia who presented with continued episodes of lightheadedness and shortness of breath usually during extensive exercise in usually after about a mile. he is used to running multiple miles per day without issue. He was recommended for stress testing, which was deemed low risk the following day. His echocardiogram did not show any evidence of wall motion abnormalities. The patient did state that he had been hydrating prior to his runs but not hydrating recently when running. I recommended that he take some hydration with him to see if this helps. Other considerations could be a cardiac arrhythmia including bradycardia or return of his atrial fibrillation. He was bradycardic on telemetry, but given his athletic ability this is not necessarily concerning. Further possibilities could be seizure given his history, although these appear less likely, amongst others. I do recommend that he follow-up with his primary care provider if the symptoms continue, for possible Holter monitor as an outpatient to evaluate for possible arrhythmias or consideration of follow-up with his neurologist if he has 1 given his history of seizure disorder. Exam Vital Signs (past 8 hours): - 05/14/21 11:45 05/14/21 11:59 05/14/21 15:29 Temperature 98 F Pulse Rate 50 L Respiratory Rate 15 Blood Pressure 122/66 Pulse Oximetry 99 99 99 05/14/21 15:46 Temperature 97.6 F Pulse Rate 51 L Respiratory Rate 16 Blood Pressure 143/75 H Pulse Oximetry 97 Oxygen Delivery Method Room Air Oxygen Flow Rate 0 Narrative Exam Narrative: Gen: Alert, oriented, well-developed 70 y.o. male, appears comfortable HEENT: normocephalic, atraumatic, conjunctiva clear, sclera non-icteric, oral mucosa pink and moist Neck: supple, full ROM, no JVD, trachea is midline Resp: Lungs CTA, non-labored breathing CV: RRR, no murmur or rubs Abd: soft, non-tender, normoactive BTs Skin: Bronzed appearance, no lesions or rashes, dry and intact Neuro: Alert and oriented X 4 w/no focal deficits. Speech clear and coherent. Extremities: moves all 4 extremities, is ambulatory, negative Mila?s sign Psyche: normal mood and affect. Objective Labs Result Diagrams: 05/14/21 05:36 05/14/21 05:36 Labs: Laboratory Results - last 24 hr 05/13/21 05/13/21 05/13/21 14:30 16:45 20:55 WBC RBC Hgb Hct MCV MCH MCHC RDW Plt Count Neut % (Auto) Lymph % (Auto) Carver % (Auto) Eos % (Auto) Baso % (Auto) Neut # (Auto) Lymph # (Auto) Carver # (Auto) Eos # (Auto) Baso # (Auto) PT INR Sodium Potassium Chloride Carbon Dioxide BUN Creatinine Estimated GFR BUN/Creatinine Ratio Glucose Calcium Magnesium 1.9 Total Bilirubin Conjugated Bilirubin Unconjugated Bilirubin AST ALT Alkaline Phosphatase Total Creatine Kinase 273 H CK-MB (CK-2) 7.15 H CK-MB (CK-2) Rel Index 2.6 Troponin I 0.020 Total Protein Albumin Globulin Albumin/Globulin Ratio Triglycerides Cholesterol LDL Cholesterol, Calc HDL Cholesterol TSH SARS-CoV-2 (PCR) Negative 05/14/21 05/14/21 05/14/21 02:12 02:12 05:36 WBC RBC Hgb Hct MCV MCH MCHC RDW Plt Count Neut % (Auto) Lymph % (Auto) Carver % (Auto) Eos % (Auto) Baso % (Auto) Neut # (Auto) Lymph # (Auto) Carver # (Auto) Eos # (Auto) Baso # (Auto) PT INR Sodium Potassium Chloride Carbon Dioxide BUN Creatinine Estimated GFR BUN/Creatinine Ratio Glucose Calcium Magnesium Total Bilirubin Conjugated Bilirubin Unconjugated Bilirubin AST ALT Alkaline Phosphatase Total Creatine Kinase 213 H CK-MB (CK-2) 5.84 H CK-MB (CK-2) Rel Index 2.7 Troponin I 0.022 Total Protein Albumin Globulin Albumin/Globulin Ratio Triglycerides 80 Cholesterol 119 L LDL Cholesterol, Calc 53 HDL Cholesterol 50 TSH 3.06 SARS-CoV-2 (PCR) 05/14/21 05/14/21 05/14/21 05:36 05:36 05:36 WBC 4.7 RBC 4.63 Hgb 14.7 Hct 43.9 MCV 94.9 MCH 31.7 MCHC 33.4 RDW 14.9 H Plt Count 159 Neut % (Auto) 56.6 Lymph % (Auto) 29.3 Carver % (Auto) 11.6 Eos % (Auto) 2.0 Baso % (Auto) 0.5 Neut # (Auto) 2700 Lymph # (Auto) 1400 Carver # (Auto) 500 Eos # (Auto) 100 Baso # (Auto) 0 PT INR Sodium 139 Potassium 4.3 Chloride 106 Carbon Dioxide 32 BUN 13 Creatinine 0.89 Estimated GFR > 60.0 BUN/Creatinine Ratio 14.6 Glucose 95 Calcium 8.9 Magnesium Total Bilirubin 0.5 Conjugated Bilirubin 0.0 Unconjugated Bilirubin 0.4 AST 51 ALT 56 H Alkaline Phosphatase 66 Total Creatine Kinase CK-MB (CK-2) CK-MB (CK-2) Rel Index Troponin I Total Protein 6.4 Albumin 3.7 Globulin 2.7 Albumin/Globulin Ratio 1.4 Triglycerides Cholesterol LDL Cholesterol, Calc HDL Cholesterol TSH SARS-CoV-2 (PCR) 05/14/21 05:58 WBC RBC Hgb Hct MCV MCH MCHC RDW Plt Count Neut % (Auto) Lymph % (Auto) Carver % (Auto) Eos % (Auto) Baso % (Auto) Neut # (Auto) Lymph # (Auto) Carver # (Auto) Eos # (Auto) Baso # (Auto) PT 21.6 H INR 1.9 H Sodium Potassium Chloride Carbon Dioxide BUN Creatinine Estimated GFR BUN/Creatinine Ratio Glucose Calcium Magnesium Total Bilirubin Conjugated Bilirubin Unconjugated Bilirubin AST ALT Alkaline Phosphatase Total Creatine Kinase CK-MB (CK-2) CK-MB (CK-2) Rel Index Troponin I Total Protein Albumin Globulin Albumin/Globulin Ratio Triglycerides Cholesterol LDL Cholesterol, Calc HDL Cholesterol TSH SARS-CoV-2 (PCR) PFSH Medical History Anticoagulated on warfarin Anticoagulation adequate History of atrial fibrillation History of CVA (cerebrovascular accident) Low testosterone in male Seizure disorder Transverse myelitis Warfarin anticoagulation Surgical History History of radiofrequency ablation procedure for cardiac arrhythmia Scrotal injury Social History household members: spouse Smoking Status: Former smoker alcohol intake: former Discharge Plan Discharge Plan Patient Disposition: Home Provider Discharge Comment: You were admitted to the hospital for a cardiac stress test, which was deemed low risk for any cardiac ischemia. I would recommend follow up with your buncher machine for possible holter monitoring. Would also recommend keeping hydration with you during your runs. Discharge orders & Medications Prescriptions: Continued (DME) Needle 18g x 1 inch See Rx Instructions .Route .MEDSUPPLY Qty: 12 RF: 4 (DME) NEEDLE 20G X 1 INCH See Rx Instructions .Route .MEDSUPPLY Qty: 12 RF: 0 baclofen 20 mg tablet 20 mg PO QID RF: 0 gabapentin 400 mg capsule 400 mg PO QID RF: 0 carbamazepine 200 mg tablet 200 mg PO BID RF: 0 onabotulinumtoxinA 1 units IM RF: 0 atorvastatin 80 mg tablet 40 mg PO DAILY RF: 0 testosterone cypionate [Depo-Testosterone] 200 mg/mL oil 200 mg IM Q2W Qty: 10 RF: 0 warfarin 5 mg tablet 15 mg PO DAILY RF: 0 Follow up/Referrals: Aristides Lewis, [Primary Care Provider] - Diet/Activity/Treatments Diet: Diet as Tolerated Activity: As tolerated Discharge Data Primary Care Provider: Aristides Lewis Attending Provider: Polina Hunt VTE Deep Vein Thrombosis/Pulmonary Embolism Present on Admission: No
--- NOTE | 2021-05-14 18:15 | PC.NURSE ---
Discharge note: Patient left under own power, accompanied by . All belongings were gathered by patient and and checked by this RN. Education on patient portal, s/sx of a stroke, follow up, and when to return given to patient and . Acknowledged all teaching.
[2021-05-14 23:49] LABS: Carbamazepine Tegretol Level 5.5 ug/mL (4.0-12.0)
== END 2021-05-14 18:13 | disposition home or self-care (01) ==
LOC: ED 16:32 → AC 17:23
PROVIDERS: Nurse Practitioner Family; Admitting Provider Internal Medicine; Emergency Provider Emergency Medicine; PCP Family Medicine; Referring Provider Emergency Medicine; Visit Provider Internal Medicine
DX: R42 Dizziness and giddiness (principal); R06.09 Other forms of dyspnea; I48.91 Unspecified atrial fibrillation; I10 Essential (primary) hypertension; E78.5 Hyperlipidemia, unspecified; G40.909 Epilepsy, unspecified, not intractable, without status epilepticus; Z86.73 Personal history of transient ischemic attack (TIA), and cerebral infarction without residual deficits; Z79.01 Long term (current) use of anticoagulants; Z20.822 Contact with and (suspected) exposure to COVID-19
CPT/HCPCS: 36415; 71045; 78452; 80048; 80053; 80061; 80076; 80156; 82550; 82553; 83690; 83735; 83880; 84443; 84484; 85025; 85379; 85610; 85730; 87635; 93005; 93010; 93017; 93306; 99284; C9803; G0378; A9502; J2785

== ENCOUNTER → 2021-06-13 13:20 | Outpatient (CLI) | payer MEDICARE, OTHER, SELFPAY ==
[2021-06-13 14:10] LABS: Add Manual Diff / Slide Review NO; Basophils Absolute Auto 0 /uL (0-100); Basophils Percent Auto 0.3 % (0-2); Eosinophils Absolute Auto 100 /uL (0-450); Eosinophils Percent Auto 1.2 % (2-4); Hematocrit 48.6 % (41-53); Hemoglobin 15.9 g/dL (13.5-17.5); Lymphocytes Absolute Auto 1200 /uL (1100-4500); Lymphocytes Percent Auto 21.5 % (25-40); Mean Corpuscular HGB Conc 32.7 % (30-36); Mean Corpuscular Hemoglobin 31.1 PG (26-34); Mean Corpuscular Volume 95.2 fL (80-100); Monocytes Absolute Auto 600 /uL (0-900); Monocytes Percent Auto 11.3 % (3-14); Neutrophils Absolute Auto 3700 /uL (1500-7000); Neutrophils Percent Auto 65.7 % (50-75); Platelet Count 203 X10^3/uL (150-400); Red Cell Distribution Width 15.2 % (11.6-14.8); White Blood Cell Count 5.7 X10^3/uL (4.5-11.0)
[2021-06-13 14:32] LABS: Alanine Aminotransferase 62 IU/L (<50); Albumin 4.5 g/dL (3.5-5.0); Albumin Globulin Ratio 1.5 (1.0-2.8); Alkaline Phosphatase 78 U/L (38-126); Aspartate Aminotransferase 55 IU/L (17-59); BUN Creatinine Ratio 21.9 (6-22); Bilirubin Total 0.6 mg/dL (0.2-1.3); Blood Urea Nitrogen 23 mg/dL (9-20); Calcium 9.9 mg/dL (8.4-10.2); Carbon Dioxide 31 mmol/L (22-32); Chloride 102 mmol/L (98-107); Estimated Glomerular Filt Rate > 60.0 mL/min (>60); Globulin 3.1 g/dL (1.7-4.1); Glucose 92 mg/dL (80-110); HEMOLYSIS < 15 (0-50); Potassium 4.6 mmol/L (3.4-5.1); Sodium 139 mmol/L (137-145); Total Protein 7.6 g/dL (6.3-8.2)
[2021-06-13 15:03] LABS: Prostate Specific Antigen 0.715 ng/mL (0.10-4.00)
[2021-06-13 15:06] LABS: Testosterone 198 ng/dL (71.8-623)
== END ==
PROVIDERS: PCP Family Medicine; Referring Provider Family Medicine; Visit Provider Family Medicine
DX: G40.309 Generalized idiopathic epilepsy and epileptic syndromes, not intractable, without status epilepticus (principal); Z86.79 Personal history of other diseases of the circulatory system; I63.9 Cerebral infarction, unspecified; R79.89 Other specified abnormal findings of blood chemistry; R97.20 Elevated prostate specific antigen [PSA]
CPT/HCPCS: 36415; 80053; 84153; 84403; 85025

== ENCOUNTER 2021-07-09 17:05 | Emergency (ER) | payer MEDICARE, OTHER, SELFPAY ==
--- NOTE | 2021-07-09 | DI.CT.S_ITS ---
PROCEDURE: CT ANGIO HEAD AND NECK INDICATIONS: POSSIBLE STROKE TECHNIQUE: Noncontrast images were performed earlier in the day and not repeated. After the administration of intravenous contrast, 1 mm thick sections acquired from the aortic arch through the [place] of [place]. Post-contrast 4.5 mm thick sections then re-acquired from the foramen magnum to the vertex. 3-dimensional uuweeww-nvuhryrfc-xjooodirne (MIP) and/or volume rendering reformats were acquired of the central intracranial vasculature and neck separately. COMPARISON: [facility], CT, CT STROKE, 07/09/2021, 17:20. [facility], CR, XR CHEST 1V, 07/09/2021, 17:20. FINDINGS: Image quality: Excellent. BRAIN: CSF spaces: Ventricles are normal in size and shape. Basal cisterns are patent. No extra-axial fluid collections. Brain: No midline shift. No intracranial bleeds or masses. Sam[place]-white matter interface appears intact. Skull and face: Calvarium and facial bones appear intact, without suspicious lesions. Orbits appear normal. Sinuses: Sinuses and mastoids are clear. HEAD CT ANGIOGRAPHY: Anterior circulation: Intracranial internal carotid arteries are normal in size and flow. The flow within the paired anterior cerebral arteries is normal and symmetric. The flow within the middle cerebral arteries is normal and symmetric. The anterior communicating artery is seen. No aneurysms are seen. Posterior circulation: Visualized portions of the vertebral arteries demonstrate normal caliber, and join to form a normal appearing basilar artery. Flow within the posterior cerebral arteries is normal and symmetric. No aneurysms are seen. NECK CT ANGIOGRAPHY: Carotid system: The great vessels demonstrate a conventional anatomy as they arise from the aortic arch. The origins of the common carotid arteries appear patent. The common carotid arteries demonstrate normal caliber and courses. The bifurcation regions are both widely patent. The internal carotid arteries demonstrate normal calibers and courses. Posterior circulation: The origins of the vertebral arteries both appear widely patent. The more superior extracranial portions of both vertebral arteries also demonstrate normal courses and calibers. They join to form a normal appearing basilar artery. Soft tissues: Visualized neck soft tissues demonstrate no suspicious abnormalities. Left-sided pacer leads are partially seen. Bones: No suspicious bony lesions. Visualized cervical spine appears normally aligned. At least moderate lower cervical spine degenerative changes are seen. IMPRESSION: No significant intracranial arterial abnormality is seen. No masses or abnormal enhancement can be seen. Within the arteries of the neck, no hemodynamically significant stenosis can be seen. Incidental note is made of: Left-sided pacer leads At least moderate lower cervical spine degenerative changes are seen. Note: Findings relayed to Dr. Velez via ER staff, [place] at 4:47 p.m. [place] time on July 09, 2021. Any quantitative measurements of stenosis were performed using NASCET criteria. Dictated by: Richie Weiner M.D. on 07/09/2021 at 16:49 Approved by: Richie Weiner M.D. on 07/09/2021 at 16:52
[2021-07-09 17:07] VITALS: BP 185/85; PULSE 60; RESP 20; TEMP 37.2; O2SAT 97
--- NOTE | 2021-07-09 17:18 | DI.RAD.S_ITS ---
PROCEDURE: XR CHEST 1V INDICATIONS: Possible stroke TECHNIQUE: One view of the chest was acquired. COMPARISON: [facility], CT, CT ANGIO HEAD AND NECK, 07/09/2021, 17:22. [facility], CT, CT STROKE, 07/09/2021, 17:20. [facility], CR, XR CHEST 1V, 05/13/2021, 14:40. FINDINGS: Surgical changes and devices: An AICD is seen. Lungs and pleura: An incomplete inspiratory result is noted, causing a crowded appearance to the lung markings. No focal infiltrates are seen. No pneumothorax or significant pleural effusions are seen. Mediastinum: The cardiac contours are within normal limits. The aorta demonstrates calcification and tortuosity. Bones and chest wall: No suspicious bony lesions. Age-appropriate bony degenerative changes are seen. Mild dextroconvex scoliotic curvature is seen. Likely remote right lateral rib fractures. Overlying soft tissues appear unremarkable. IMPRESSION: No acute cardiopulmonary process is seen. Postoperative and degenerative changes are seen. Apparent remote right lateral rib fractures. Dictated by: Richie Weiner M.D. on 07/09/2021 at 16:52 Approved by: Richie Wiener M.D. on 07/09/2021 at 16:53
--- NOTE | 2021-07-09 17:18 | DI.CT.S_ITS ---
PROCEDURE: CT STROKE INDICATIONS: R/o stroke TECHNIQUE: Noncontrast 4.5 mm thick angled axial sections acquired from the foramen magnum to the vertex, with coronal reformats. For radiation dose reduction, the following was used: automated exposure control, adjustment of mA and/or kV according to patient size. COMPARISON: [facility], CT, CT ANGIO HEAD AND NECK, 07/09/2021, 17:22. FINDINGS: Image quality: Excellent. CSF spaces: Basal cisterns are patent. No extra-axial fluid collections. The ventricles are symmetric in size and shape. Brain: No intracranial bleeds or masses. There is cerebral volume loss for age, with resultant ventricular and sulcal prominence. There are periventricular and deep white matter chronic small vessel ischemic changes. There is intracranial internal carotid artery atherosclerosis. Skull and face: Calvarium and visualized facial bones appear intact, without suspicious lesions. Sinuses: Visualized sinuses and mastoids are clear. IMPRESSION: No acute intracranial hemorrhage is seen. No acute intracranial process is seen. Note: Dr. Velez was not available to discuss this case at the time of this dictation. Findings relayed to Dr. Velez via ER staff, Kandi, at 4:47 p.m. [place] time on July 09, 2021. This study fulfills neurological imaging criteria for inclusion or exclusion of acute stroke therapies based on available published neurological guidelines. Dictated by: Richie Weiner M.D. on 07/09/2021 at 16:46 Approved by: Richie Weiner M.D. on 07/09/2021 at 16:49
[2021-07-09 17:30] LABS: Add Manual Diff / Slide Review NO; Basophils Absolute Auto 0 /uL (0-100); Basophils Percent Auto 0.3 % (0-2); Eosinophils Absolute Auto 0 /uL (0-450); Eosinophils Percent Auto 0.1 % (2-4); Hematocrit 47.5 % (41-53); Hemoglobin 15.5 g/dL (13.5-17.5); Lymphocytes Absolute Auto 1100 /uL (1100-4500); Lymphocytes Percent Auto 9.8 % (25-40); Mean Corpuscular HGB Conc 32.7 % (30-36); Mean Corpuscular Hemoglobin 31.2 PG (26-34); Mean Corpuscular Volume 95.3 fL (80-100); Monocytes Absolute Auto 1100 /uL (0-900); Monocytes Percent Auto 9.2 % (3-14); Neutrophils Absolute Auto 9300 /uL (1500-7000); Neutrophils Percent Auto 80.6 % (50-75); Platelet Count 209 X10^3/uL (150-400); Red Blood Cell Count 4.98 X10^6/uL (4.5-5.9); Red Cell Distribution Width 15.5 % (11.6-14.8); White Blood Cell Count 11.5 X10^3/uL (4.5-11.0)
[2021-07-09 17:37] LABS: Alanine Aminotransferase 95 IU/L (<50); Albumin 4.4 g/dL (3.5-5.0); Albumin Globulin Ratio 1.6 (1.0-2.8); Alkaline Phosphatase 76 U/L (38-126); Aspartate Aminotransferase 50 IU/L (17-59); BUN Creatinine Ratio 21.3 (6-22); Bilirubin Total 0.6 mg/dL (0.2-1.3); Blood Urea Nitrogen 23 mg/dL (9-20); Calcium 9.4 mg/dL (8.4-10.2); Carbon Dioxide 31 mmol/L (22-32); Chloride 102 mmol/L (98-107); Creatine Kinase 129 U/L (55-170); Estimated Glomerular Filt Rate > 60.0 mL/min (>60); Globulin 2.8 g/dL (1.7-4.1); Glucose 99 mg/dL (80-110); HEMOLYSIS < 15 (0-50); Potassium 4.3 mmol/L (3.4-5.1); Sodium 138 mmol/L (137-145); Total Protein 7.2 g/dL (6.3-8.2)
[2021-07-09 17:49] LABS: Troponin I < 0.012 ng/mL (0.01-0.034)
[2021-07-09 17:52] LABS: CKMB % Relative Index 3.6 % (1.5-5.0); Creatine Kinase MB 4.69 ng/mL (<2.37)
--- NOTE | 2021-07-09 18:14 | ED.NEUROSD ---
HPI - Neuro Symptoms/Deficit General Chief Complaint: Neuro Symptoms/Deficit Stated Complaint: left face numbness/stroke? Time Seen by Provider: 07/09/21 18:13 Source: patient Mode of arrival: Ambulatory Limitations: no limitations History of Present Illness HPI Narrative: This is a 70-year-old male who comes with complaint of left-sided facial and slurred speech which has improved. Patient has prior left-sided deficits with mild changes to the face upper extremity leg with weakness on the left side as well although patient is quite active and able to run up to 30 miles weekly. Past strict was in 2017. Patient states that he noticed symptoms about 1:00 p.m. today they have since improved he is not sure if he is 100% back to normal but he states he significantly better. He states he actually has a little bit better sensation on the left side at this time than his typical. Patient has been off his warfarin his INR 4 he was told to stop his warfarin. Plan is to restart his Eliquis after his INR is below 2. Patient had his warfarin adjusted because he had a pacer defibrillator placed on Friday at [facility] in [place] by Dr. Mariscal. Patient history significant for prior stroke, hypertension dyslipidemia, recent pacemaker placement. Two prior seizures when he was in college in at approximately 25 years ago. 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 He is also taking prednisone and just decreased from 2 tabs b.i.d. to 1 tab b.i.d. as well as decreasing his amiodarone dose as per his Cardiology recommendations. Patient denies any, no chest pain or shortness of breath. No nausea or vomiting. He notes 2 recent episodes of continence which are in typical forearm. He denies any back or flank pain. No dysuria, urgency or frequency. No issues with bowel movements. Patient's primary care is Dr. Lewis. On Anticoagulants: Yes (removed 4 days ago) Related Data Home Medications Medication Instructions Recorded Confirmed baclofen 20 mg tablet 20 mg PO QID 10/09/20 05/13/21 carbamazepine 200 mg tablet 200 mg PO BID 10/09/20 05/13/21 gabapentin 400 mg capsule 400 mg PO QID cap 10/09/20 05/13/21 onabotulinumtoxinA [Botox] 1 units IM 10/09/20 10/09/20 atorvastatin 80 mg tablet 40 mg PO DAILY tab 10/10/20 05/13/21 warfarin 5 mg tablet 15 mg PO DAILY 05/13/21 05/13/21 Previous Rx's Medication Instructions Recorded NEEDLE #12 ea 03/19/21 Needle #12 ea 03/19/21 testosterone cypionate 200 mg/mL 200 mg IM Q2W #10 ml 04/11/21 intramuscular oil (Depo-Testosterone) amiodarone 200 mg tablet 200 mg PO BID #60 tab 07/02/21 carvedilol 3.125 mg tablet 3.125 mg PO BID #60 tab 07/02/21 prednisone 20 mg tablet 20 mg PO BID #60 tab 07/02/21 Allergies Allergy/AdvReac Type Severity Reaction Status Date / Time No Known Drug Allergies Allergy Verified 10/09/20 14:12 Review of Systems Review of Systems ROS Unobtainable: All systems reviewed & are unremarkable except as noted in HPI and below Hematologic/Lymphatic On Anticoagulants: Yes (removed 4 days ago) Patient History Medical History Anticoagulated on warfarin Anticoagulation adequate History of atrial fibrillation History of CVA (cerebrovascular accident) Low testosterone in male Seizure disorder Transverse myelitis Warfarin anticoagulation Surgical History History of radiofrequency ablation procedure for cardiac arrhythmia Scrotal injury Social History household members: spouse Smoking Status: Former smoker alcohol intake: former Smoking Status: Former smoker Substance Use Type: does not use Exam Narrative Exam Narrative: GEN: well nourished, well appearing male, alert and oriented x 3, patient appears to be in mild distress. HEENT: Atraumatic, pupils are equal round reactive to light, extraocular movements are intact, nares are clear, TMs are clear with no fluid, there is no conjunctival pallor. Throat is clear without any exudates, erythema, tonsillar enlargement or uvular deviation, slight difference of left-sided facial sensation although the patient is improved. Droop is not appreciated at this time. HEART: Regular rate and rhythm without murmur, clicks, rubs. Pulses are equal in upper and lower extremities LUNGS:Lungs clear to auscultation, no wheezes, rales, crackles, chest moves symmetrically ABD:bowel sounds normal, soft, non-tender, no guarding, rebound, rigidity, no masses noted, no hepatosplenomegaly :No CVA tenderness MSCL: Non-tender, no muscle atrophy, muscles strength 5/5 upper and lower extremities, full range of motion, patient has full strength but does have some decreased use of his left hand and slight difficulty of use of his left leg. This is normal per patient and at bedside. NEURO:CN 2-12 intact, sensation normal, reflexes 2/4 upper and lower extremities. finger nose finger test normal although patient struggles a little with his left hand. Heel hutchison test normal SKIN: No rash, erythema or other skin changes noted. Initial Vital Signs Initial Vital Signs: Vital Signs Temperature 98.9 F 07/09/21 17:07 Pulse Rate 60 07/09/21 17:07 Respiratory Rate 20 07/09/21 17:07 Blood Pressure 185/85 H 07/09/21 17:07 Pulse Oximetry 97 07/09/21 17:07 Scores NIH Stroke Scale Level of Conciousness: Alert, keenly responsive Ask month/age: Answers both questions correctly. Open/close eyes, close hand: Performs both tasks correctly Best gaze horizontal: Normal Visual arias: No visual loss Facial palsy: Normal symetrical movement Left arm drift: Drifts down, not to bed Right arm drift: No drift for full 10 sec Left leg drift: No drift for full 5 sec Right leg drift: No drift for full 5 sec Limb ataxia: Present in two limbs Sensory on face/arms/legs: Mild to moderate sensory loss, can tell touch Best language: No aphasia, normal Dysarthria: Normal Extinction or inattention: No abnormality Total NIH Stroke scale score: 4 Citation:: NIH 4, patient appears to be patients baseline. Course Orders Ordered: Discontinued Medications Apixaban (Apixaban 5 Mg Tablet) 5 mg PO NOW ONE Stop: 07/09/21 18:45 Last Admin: 07/09/21 18:56 Dose: Not Given Documented by: LICHA Vital Signs Vital signs: Vital Signs - 8 hr 07/09/21 17:07 Temperature 98.9 F Pulse Rate 60 Respiratory Rate 20 Blood Pressure 185/85 H Pulse Oximetry 97 MDM - Neuro Symptoms/Deficit Lab Data Result diagrams: 07/09/21 17:20 07/09/21 17:20 Labs: Lab Results 07/09/21 07/09/21 07/09/21 Range/Units 17:20 17:20 17:20 WBC 11.5 H (4.5-11.0) X10^3/uL RBC 4.98 (4.5-5.9) X10^6/uL Hgb 15.5 (13.5-17.5) g/dL Hct 47.5 (41-53) % MCV 95.3 (80-100) fL MCH 31.2 (26-34) PG MCHC 32.7 (30-36) % RDW 15.5 H (11.6-14.8) % Plt Count 209 (150-400) X10^3/uL Neut % (Auto) 80.6 H (50-75) % Lymph % (Auto) 9.8 L (25-40) % Dane % (Auto) 9.2 (3-14) % Eos % (Auto) 0.1 L (2-4) % Baso % (Auto) 0.3 (0-2) % Neut # (Auto) 9300 H (2308-3070) /uL Lymph # (Auto) 1100 (7945-1078) /uL Dane # (Auto) 1100 H (0-900) /uL Eos # (Auto) 0 (0-450) /uL Baso # (Auto) 0 (0-100) /uL PT 13.4 H (10.1-12.7) SECONDS INR 1.2 (0.9-1.3) APTT 27 D (26.4-36.2) SECONDS Sodium 138 (137-145) mmol/L Potassium 4.3 (3.4-5.1) mmol/L Chloride 102 (98-107) mmol/L Carbon Dioxide 31 (22-32) mmol/L BUN 23 H (9-20) mg/dL Creatinine 1.08 (0.66-1.25) mg/dL Estimated GFR > 60.0 (>60) mL/min BUN/Creatinine Ratio 21.3 (6-22) Glucose 99 (80-110) mg/dL Calcium 9.4 (8.4-10.2) mg/dL Total Bilirubin 0.6 (0.2-1.3) mg/dL AST 50 (17-59) IU/L ALT 95 H (<50) IU/L Alkaline Phosphatase 76 (38-126) U/L Total Creatine Kinase 129 (55-170) U/L CK-MB (CK-2) 4.69 H (<2.37) ng/mL CK-MB (CK-2) Rel Index 3.6 (1.5-5.0) % Troponin I < 0.012 (0.01-0.034) ng/mL Total Protein 7.2 (6.3-8.2) g/dL Albumin 4.4 (3.5-5.0) g/dL Globulin 2.8 (1.7-4.1) g/dL Albumin/Globulin Ratio 1.6 (1.0-2.8) Urine Color Urine Appearance Urine pH (4.5-8.0) Ur Specific [place] (1.000-1.035) Urine Protein (Negative) Urine Glucose (UA) (Negative) g/dL Urine Ketones (NEGATIVE) Urine Occult Blood (Negative) Urine Nitrate (Negative) Urine Bilirubin (NEGATIVE) Urine Urobilinogen (0.2) E.U./dL Ur Leukocyte Esterase (NEGATIVE) Urine RBC (0-5/HPF) Urine WBC (0-5/HPF) Urine Bacteria (None) Ur Culture Indicated? Micro UA Comment U Opiates 300ng/mL cut (Negative) Ur Oxycodone Screen (Negative) Urine Methadone Screen (Negative) Ur Barbiturates Screen (Negative) U Tricyclic Antidepress (Negative) Ur Phencyclidine Scrn (Negative) Ur Amphetamines Screen (Negative) U Methamphetamines Scrn (Negative) Ur MDMA Scrn (Ecstasy) (Negative) U Benzodiazepines Scrn (Negative) Urine Cocaine Screen (Negative) U Marijuana (THC) Screen (Negative) SARS-CoV-2 (PCR) (Negative) 07/09/21 07/09/21 07/09/21 Range/Units 18:00 19:17 19:17 WBC (4.5-11.0) X10^3/uL RBC (4.5-5.9) X10^6/uL Hgb (13.5-17.5) g/dL Hct (41-53) % MCV (80-100) fL MCH (26-34) PG MCHC (30-36) % RDW (11.6-14.8) % Plt Count (150-400) X10^3/uL Neut % (Auto) (50-75) % Lymph % (Auto) (25-40) % Dane % (Auto) (3-14) % Eos % (Auto) (2-4) % Baso % (Auto) (0-2) % Neut # (Auto) (0937-6906) /uL Lymph # (Auto) (4595-0307) /uL Dane # (Auto) (0-900) /uL Eos # (Auto) (0-450) /uL Baso # (Auto) (0-100) /uL PT (10.1-12.7) SECONDS INR (0.9-1.3) APTT (26.4-36.2) SECONDS Sodium (137-145) mmol/L Potassium (3.4-5.1) mmol/L Chloride (98-107) mmol/L Carbon Dioxide (22-32) mmol/L BUN (9-20) mg/dL Creatinine (0.66-1.25) mg/dL Estimated GFR (>60) mL/min BUN/Creatinine Ratio (6-22) Glucose (80-110) mg/dL Calcium (8.4-10.2) mg/dL Total Bilirubin (0.2-1.3) mg/dL AST (17-59) IU/L ALT (<50) IU/L Alkaline Phosphatase (38-126) U/L Total Creatine Kinase (55-170) U/L CK-MB (CK-2) (<2.37) ng/mL CK-MB (CK-2) Rel Index (1.5-5.0) % Troponin I (0.01-0.034) ng/mL Total Protein (6.3-8.2) g/dL Albumin (3.5-5.0) g/dL Globulin (1.7-4.1) g/dL Albumin/Globulin Ratio (1.0-2.8) Urine Color Yellow Urine Appearance Clear Urine pH 7.0 (4.5-8.0) Ur Specific [place] 1.010 (1.000-1.035) Urine Protein Negative (Negative) Urine Glucose (UA) Negative (Negative) g/dL Urine Ketones Negative (NEGATIVE) Urine Occult Blood Negative (Negative) Urine Nitrate Negative (Negative) Urine Bilirubin Negative (NEGATIVE) Urine Urobilinogen 0.2 (0.2) E.U./dL Ur Leukocyte Esterase Negative (NEGATIVE) Urine RBC None seen (0-5/HPF) Urine WBC None seen (0-5/HPF) Urine Bacteria None seen (None) Ur Culture Indicated? Cult not indicated Micro UA Comment Microscopic normal U Opiates 300ng/mL cut Negative (Negative) Ur Oxycodone Screen Negative (Negative) Urine Methadone Screen Negative (Negative) Ur Barbiturates Screen Negative (Negative) U Tricyclic Antidepress Negative (Negative) Ur Phencyclidine Scrn Negative (Negative) Ur Amphetamines Screen Negative (Negative) U Methamphetamines Scrn Negative (Negative) Ur MDMA Scrn (Ecstasy) Negative (Negative) U Benzodiazepines Scrn Negative (Negative) Urine Cocaine Screen Negative (Negative) U Marijuana (THC) Screen Negative (Negative) SARS-CoV-2 (PCR) Negative (Negative) Imaging Data CTA - brain/neck: Radiologist's Impression: Vasiliy Reyez?(Anson)??70??M??1950 ? Allergy/Adv: No Known Drug Allergies (More??) Close Chest X-Ray (Signed) Richie Weiner - 07/09/[address] (Signed) Richie Weiner - 07/09/21 Head/Neck CTA (Signed) Richie Weiner - 07/09/21 Echocardiogram Ultrasound (Signed) Matt Wheelerol - 05/14/21 Myocardial Perfusion Scan Nuc Med (Signed) Kelly Khoury - 05/13/21 Telemetry Strips 05/13/21 Chest X-Ray (Signed) Navin Berger - 05/13/21 Launch?[place] [address] CT Scan Report Signed Patient: Vasiliy Reyez MR#: [id number] : 1950 Acct:[id number] Age/Sex: 70 / M Date of Service: 07/09/21 Loc: ED Accession Number: [id number] ?? Procedure: CT angio head and neck Ordering Provider: Botnick,Hawa D.O. PROCEDURE:? CT ANGIO HEAD AND NECK ? INDICATIONS:? POSSIBLE STROKE ? TECHNIQUE:? Noncontrast images were performed earlier in the day and not repeated.? ? After the administration of intravenous contrast, 1 mm thick sections acquired from the aortic arch through the [place].? Post-contrast 4.5 mm thick sections then re-acquired from the foramen magnum to the vertex.? 3-dimensional fgyuhvr-pmjthmgcv-gxhggurjsb (MIP) and/or volume rendering reformats were acquired of the central intracranial vasculature and neck separately. ? COMPARISON:? Merged With [facility], CT, CT STROKE, 07/09/2021, 17:20.? Merged With [facility], CR, XR CHEST 1V, 07/09/2021, 17:20. ? FINDINGS:? Image quality:? Excellent.? ? BRAIN:? CSF spaces:? Ventricles are normal in size and shape.? Basal cisterns are patent.? No extra-axial fluid collections.? ? Brain:? No midline shift.? No intracranial bleeds or masses.? Samaniego-white matter interface appears intact.? ? Skull and face:? Calvarium and facial bones appear intact, without suspicious lesions.? Orbits appear normal.? ? Sinuses:? Sinuses and mastoids are clear.? ? HEAD CT ANGIOGRAPHY:? Anterior circulation:? Intracranial internal carotid arteries are normal in size and flow.? The flow within the paired anterior cerebral arteries is normal and symmetric.? The flow within the middle cerebral arteries is normal and symmetric.? The anterior communicating artery is seen.? No aneurysms are seen.? ? Posterior circulation:? Visualized portions of the vertebral arteries demonstrate normal caliber, and join to form a normal appearing basilar artery.? Flow within the posterior cerebral arteries is normal and symmetric.? No aneurysms are seen.? ? NECK CT ANGIOGRAPHY:? Carotid system:? The great vessels demonstrate a conventional anatomy as they arise from the aortic arch.? The origins of the common carotid arteries appear patent.? The common carotid arteries demonstrate normal caliber and courses.? The bifurcation regions are both widely patent.? The internal carotid arteries demonstrate normal calibers and courses.? ? Posterior circulation:? The origins of the vertebral arteries both appear widely patent.? The more superior extracranial portions of both vertebral arteries also demonstrate normal courses and calibers.? They join to form a normal appearing basilar artery.? ? Soft tissues:? Visualized neck soft tissues demonstrate no suspicious abnormalities.? Left-sided pacer leads are partially seen. ? Bones:? No suspicious bony lesions.? Visualized cervical spine appears normally aligned.? At least moderate lower cervical spine degenerative changes are seen. ? ? IMPRESSION:? No significant intracranial arterial abnormality is seen.? ? No masses or abnormal enhancement can be seen. ? Within the arteries of the neck, no hemodynamically significant stenosis can be seen. ? Incidental note is made of: Left-sided pacer leads At least moderate lower cervical spine degenerative changes are seen. ? Note: Findings relayed to Dr. Velez via ER staff, Cornel[place] at 4:47 p.m. [place] time on July 09, 2021.? ? Any quantitative measurements of stenosis were performed using NASCET criteria.? ? ? Dictated by: Richie Weiner M.D. on 07/09/2021 at 16:49 ? ? Approved by: Richie Weiner M.D. on 07/09/2021 at 16:52 CT scan - head: Radiologist's Impression: Launch?[place] [address] CT Scan Report Signed Patient: Vasiliy Reyez MR#: [id number] : 1950 Acct:[id number] Age/Sex: 70 / M Date of Service: 07/09/21 Loc: ED Accession Number: [id number] ?? Procedure: CT Stroke Ordering Provider: Hawa Velez D.O. PROCEDURE:? CT STROKE ? INDICATIONS:? R/o stroke ? TECHNIQUE:? Noncontrast 4.5 mm thick angled axial sections acquired from the foramen magnum to the vertex, with coronal reformats.? For radiation dose reduction, the following was used:? automated exposure control, adjustment of mA and/or kV according to patient size.? ? COMPARISON:? Merged With [facility], CT, CT ANGIO HEAD AND NECK, 07/09/2021, 17:22. ? FINDINGS:? Image quality:? Excellent.? ? CSF spaces:? Basal cisterns are patent.? No extra-axial fluid collections.? The ventricles are symmetric in size and shape.? ? Brain:? No intracranial bleeds or masses.? There is cerebral volume loss for age, with resultant ventricular and sulcal prominence.? There are periventricular and deep white matter chronic small vessel ischemic changes.? There is intracranial internal carotid artery atherosclerosis.? ? Skull and face:? Calvarium and visualized facial bones appear intact, without suspicious lesions.? ? Sinuses:? Visualized sinuses and mastoids are clear.? IMPRESSION:? No acute intracranial hemorrhage is seen.? ? No acute intracranial process is seen.? ? Note:? Dr. Velez was not available to discuss this case at the time of this dictation.? Findings relayed to Dr. Velez via ER staff, Kandi, at 4:47 p.m. [place] time on July 09, 2021.? ? This study fulfills neurological imaging criteria for inclusion or exclusion of acute stroke therapies based on available published neurological guidelines.? ? ? Dictated by: Richie Weiner M.D. on 07/09/2021 at 16:46 ? ? Approved by: Richie Weiner M.D. on 07/09/2021 at 16:49?? Chest x-ray: Radiologist's Impression: [address] [address]OT[place] ReportSigned Patient: Vasiliy Reyez#: [id number]: 1950Acct:[id number]/Sex: 70 / MDate of Service: 07/09/21Loc: EDAccession Number: [id number]? ? Procedure: XR chest 1V Ordering Provider: Hawa Velez D.O. PROCEDURE:? XR CHEST 1V ? INDICATIONS:? Possible stroke ? TECHNIQUE:? One view of the chest was acquired.? ? COMPARISON:? Merged With [facility], CT, CT ANGIO HEAD AND NECK, 07/09/2021, 17:22.? Merged With [facility], CT, CT STROKE, 07/09/2021, 17:20.? Merged With [facility], CR, XR CHEST 1V, 05/13/2021, 14:40. ? FINDINGS:? ? Surgical changes and devices:? An AICD is seen.? ? Lungs and pleura:? An incomplete inspiratory result is noted, causing a crowded appearance to the lung markings.? No focal infiltrates are seen.? No pneumothorax or significant pleural effusions are seen.?? ? Mediastinum:? The cardiac contours are within normal limits. The aorta demonstrates calcification and tortuosity. ? Bones and chest wall:? No suspicious bony lesions.? Age-appropriate bony degenerative changes are seen.? Mild dextroconvex scoliotic curvature is seen.? ?Likely remote right lateral rib fractures.? ?Overlying soft tissues appear unremarkable.? ? ? IMPRESSION:? ? ?No acute cardiopulmonary process is seen.? ? Postoperative and degenerative changes are seen.? ? Apparent remote right lateral rib fractures.? ? Dictated by: Richie Weiner M.D. on 07/09/2021 at 16:52? ?? Approved by: Richie Weiner M.D. on 07/09/2021 at 16:53?? ECG Data Attestation: I personally reviewed and interpreted this ECG as follows: Prior ECG tracings: available for review Interpretation: Atrial paced rhythm prolonged AV conduction. Rate of 60 ND 244 QRS of 108 QTC of 426. Patient has prior EKG from 05/13/2021 which is not paced but otherwise appears similar. MDM Narrative Medical decision making narrative: This is a 70-year-old male with likely TIA. Patient's NIH appears to be in his normal baseline. There is warfarin having normalized after being held secondary to being supratherapeutic after having his defibrillator placed and restarted on his warfarin. Patient was instructed to record changer tester to Eliquis once his INR was below 2 but they were unable to obtain an INR level in the last 24 hours secondary to the holiday and lab not being open. CT angio, head CT and labs do not show major abnormalities. Patient was outside the window for tPA intervention. And his symptoms appear to have urged her and to his baseline. After discussion with patient we discussed observation but he and his both feel comfortable returning home. They have his prescription for Eliquis here he took his 1st dose this evening. He was encouraged to continue all of his home medications which appeared appropriate for treatment TIA stroke and patient is to follow-up primary care as well as his Cardiology team shortly. Stroke Core Measures Exclusion Criteria TPA in CVA: Symptom Onset >3 or 4.5 Hours Discharge Plan Departure Patient Disposition: Home Clinical Impression: TIA (transient ischemic attack) Instructions: DI for Transient Ischemic Attack Activity Restrictions/Additional Instructions: Follow-up with your physician this week call for an appointment if you do not already have one established. I suspect you have had a TIA today secondary to not being fully anticoagulated. Your INR today is 1.2. Began your Eliquis 5 mg twice daily as prescribed by your water quality manager. I would recommend continuing your other medications as prescribed. Please return for new or worsening symptoms, headaches, new numbness, weakness tingling, difficulty with speech, new headaches, chest pain, shortness of breath or other new or concerning symptoms. Prescriptions: No Action (DME) Needle 18g x 1 inch See Rx Instructions .Route .MEDSUPPLY Qty: 12 RF: 4 (DME) NEEDLE 20G X 1 INCH See Rx Instructions .Route .MEDSUPPLY Qty: 12 RF: 0 carvedilol 3.125 mg tablet 3.125 mg PO BID Qty: 60 RF: 0 amiodarone 200 mg tablet 200 mg PO BID Qty: 60 RF: 0 prednisone 20 mg tablet 20 mg PO BID Qty: 60 RF: 0 baclofen 20 mg tablet 20 mg PO QID RF: 0 gabapentin 400 mg capsule 400 mg PO QID RF: 0 carbamazepine 200 mg tablet 200 mg PO BID RF: 0 onabotulinumtoxinA 1 units IM RF: 0 atorvastatin 80 mg tablet 40 mg PO DAILY RF: 0 testosterone cypionate [Depo-Testosterone] 200 mg/mL oil 200 mg IM Q2W Qty: 10 RF: 0 warfarin 5 mg tablet 15 mg PO DAILY RF: 0 Referrals: Aristides Lewis, [Primary Care Provider] -
[2021-07-09 18:17] VITALS: PULSE 60; RESP 20; O2SAT 93
[2021-07-09 18:21] LABS: INR 1.2 (0.9-1.3); Prothrombin Time 13.4 SECONDS (10.1-12.7)
[2021-07-09 18:24] LABS: PTT Partial Thromboplastin Tim 27 SECONDS (26.4-36.2)
[2021-07-09 18:30] VITALS: PULSE 60; RESP 21; O2SAT 97
[2021-07-09 18:38] VITALS: BP 159/81; PULSE 60; RESP 17; O2SAT 97
--- NOTE | 2021-07-09 18:56 | PC.NURSE ---
per Dr. Maravilla, pt is able to take his own Eliquis dose. pt took with some water.
[2021-07-09 19:01] VITALS: BP 195/84; PULSE 60; RESP 16; O2SAT 95
[2021-07-09 19:21] LABS: COVID19 - ADMIT (NP swab/PCR) Negative (Negative)
[2021-07-09 19:23] LABS: Bacteria Urine None Seen; RBC Urine None Seen (0-5/HPF); WBC Urine None Seen (0-5/HPF)
[2021-07-09 19:24] LABS: Appearance Urine UA CLEAR; Bilirubin Urine UA NEGATIVE (NEGATIVE); Color Urine UA YELLOW; Glucose Urine UA NEGATIVE (Negative); Ketones Urine UA NEGATIVE (NEGATIVE); Leukocyte Esterase Urine UA NEGATIVE (NEGATIVE); Nitrite Urine UA NEGATIVE (Negative); Occult Blood Urine UA NEGATIVE (Negative); Protein Urine UA NEGATIVE (Negative); Urobilinogen Urine UA 0.2 E.U./dL (0.2)
[2021-07-09 19:29] LABS: UR Morphine/Opiate cutoff 300 Negative (Negative); Ur Creatinine 20 (Normal); Ur Specific Gravity 1.025 (Normal); Urine Amphetamines Negative (Negative); Urine Barbiturates Negative (Negative); Urine Benzodiazepines Negative (Negative); Urine Cocaine Negative (Negative); Urine MDMA Negative (Negative); Urine Methadone Negative (Negative); Urine Methamphetamines Negative (Negative); Urine Phencyclidine Negative (Negative); Urine Tetrahydrocannabinol Negative (Negative); Urine Tricyclic Antidepressant Negative (Negative); Urine pH 5 (Normal)
[2021-07-09 19:30] LABS: Urine Oxycodone Negative (Negative)
[2021-07-09 19:32] LABS: Culture Indicated Urine Cult Not Indicated; Urine Comments Microscopic Normal
[2021-07-09 20:22] VITALS: BP 188/95; PULSE 60; RESP 18; O2SAT 97
== END 2021-07-09 20:23 | disposition home or self-care (01) ==
PROVIDERS: Emergency Medicine; Emergency Provider Emergency Medicine; PCP Family Medicine
DX: G45.9 Transient cerebral ischemic attack, unspecified (principal); R47.81 Slurred speech; Z79.01 Long term (current) use of anticoagulants; Z20.822 Contact with and (suspected) exposure to COVID-19
CPT/HCPCS: 36415; 70450; 70496; 70498; 71045; 80053; 80305; 81001; 82550; 82553; 84484; 85025; 85610; 85730; 87635; 93005; 99284; C9803

== ENCOUNTER → 2021-09-14 15:01 | Outpatient (CLI) | payer MEDICARE, OTHER, SELFPAY ==
[2021-09-14 17:52] LABS: COVID-19 CEPHEID PCR (VTM/NP) Negative (Negative)
== END ==
PROVIDERS: PCP Family Medicine; Visit Provider Physician Assistant
DX: Z20.822 Contact with and (suspected) exposure to COVID-19 (principal)
CPT/HCPCS: U0003

== ENCOUNTER → 2021-11-07 12:21 | Outpatient (CLI) | payer MEDICARE, OTHER, SELFPAY ==
[2021-11-07 13:46] LABS: Add Manual Diff / Slide Review NO; Basophils Absolute Auto 0 /uL (0-100); Basophils Percent Auto 0.2 % (0-2); Eosinophils Absolute Auto 0 /uL (0-450); Eosinophils Percent Auto 0.1 % (2-4); Hematocrit 47.3 % (41-53); Hemoglobin 15.9 g/dL (13.5-17.5); Lymphocytes Absolute Auto 600 /uL (1100-4500); Mean Corpuscular HGB Conc 33.5 % (30-36); Mean Corpuscular Hemoglobin 32.6 PG (26-34); Mean Corpuscular Volume 97.2 fL (80-100); Monocytes Absolute Auto 300 /uL (0-900); Monocytes Percent Auto 4.1 % (3-14); Neutrophils Absolute Auto 6900 /uL (1500-7000); Neutrophils Percent Auto 87.6 % (50-75); Platelet Count 197 X10^3/uL (150-400); Red Blood Cell Count 4.87 X10^6/uL (4.5-5.9); Red Cell Distribution Width 15.4 % (11.6-14.8); White Blood Cell Count 7.8 X10^3/uL (4.5-11.0)
[2021-11-07 14:04] LABS: Alanine Aminotransferase 68 IU/L (<50); Albumin 4.4 g/dL (3.5-5.0); Albumin Globulin Ratio 1.7 (1.0-2.8); Alkaline Phosphatase 70 U/L (38-126); Aspartate Aminotransferase 58 IU/L (17-59); BUN Creatinine Ratio 19.5 (6-22); Bilirubin Total 0.6 mg/dL (0.2-1.3); Blood Urea Nitrogen 23 mg/dL (9-20); Calcium 9.7 mg/dL (8.4-10.2); Carbon Dioxide 29 mmol/L (22-32); Chloride 103 mmol/L (98-107); Estimated Glomerular Filt Rate > 60.0 mL/min (>60); Globulin 2.6 g/dL (1.7-4.1); Glucose 105 mg/dL (80-110); HEMOLYSIS < 15 (0-50); Magnesium 1.9 mg/dL (1.6-2.3); Potassium 4.8 mmol/L (3.4-5.1); Sodium 138 mmol/L (137-145)
[2021-11-07 14:51] LABS: Vitamin B12 > 1000 pg/mL (239-931)
[2021-11-10 12:44] LABS: Methylmalonic Acid,Serum 219 nmol/L (0-378)
[2021-11-10 15:00] LABS: Percent Free Testosterone 3.38 % (1.50-4.20); Testosterone Free 33.13 ng/dL (5.00-21.00); Testosterone Total 980.3 ng/dL (264.0-916.0)
== END ==
PROVIDERS: PCP Family Medicine; Referring Provider Physical Medicine & Rehabilitation; Visit Provider Physical Medicine & Rehabilitation
DX: R53.83 Other fatigue (principal); G40.909 Epilepsy, unspecified, not intractable, without status epilepticus; R79.89 Other specified abnormal findings of blood chemistry
CPT/HCPCS: 36415; 80053; 82607; 83735; 83921; 84402; 84403; 85025

== ENCOUNTER → 2021-11-09 13:54 | Outpatient (CLI) | payer MEDICARE, OTHER, SELFPAY ==
--- NOTE | 2021-11-09 | DI.RAD.S_ITS ---
PROCEDURE: XR CHEST 2V INDICATIONS: ABNORMAL FINDINGS TECHNIQUE: 2 views of the chest were acquired. COMPARISON: [facility], CR, XR CHEST 1V, 07/09/2021, 17:20. FINDINGS: Surgical changes and devices: Left chest wall pacemaker leads are in the region of right atrium and right ventricle. Lungs and pleura: Mild pulmonary vascular congestion is seen. No definite focal infiltrate. No pleural effusions or pneumothorax. Mediastinum: Mediastinal contours are normal. Heart size is normal. Bones and chest wall: No suspicious bony abnormalities. Old healed left posterior lateral mid rib fractures are seen. Soft tissues appear unremarkable. IMPRESSION: Old healed left posterior lateral mid rib fractures. Mild pulmonary vascular congestion. No definite focal infiltrate. No pleural effusion or pneumothorax. Dictated by: John Torres M.D. on 11/09/2021 at 15:05 Approved by: John Torres M.D. on 11/09/2021 at 15:06
== END ==
PROVIDERS: PCP Family Medicine; Visit Provider Internal Medicine
DX: R93.89 Abnormal findings on diagnostic imaging of other specified body structures (principal); R09.89 Other specified symptoms and signs involving the circulatory and respiratory systems; Z87.81 Personal history of (healed) traumatic fracture; Z95.0 Presence of cardiac pacemaker
CPT/HCPCS: 71046

== ENCOUNTER → 2022-10-01 10:44 | Outpatient (CLI) | payer MEDICARE, OTHER, SELFPAY ==
[2022-10-01 11:31] LABS: Add Manual Diff / Slide Review NO; Basophils Absolute Auto 0 /uL (0-100); Basophils Percent Auto 0.2 % (0-2); Eosinophils Absolute Auto 0 /uL (0-450); Eosinophils Percent Auto 0.3 % (2-4); Hematocrit 46.3 % (41-53); Hemoglobin 15.1 g/dL (13.5-17.5); Lymphocytes Absolute Auto 700 /uL (1100-4500); Lymphocytes Percent Auto 10.1 % (25-40); Mean Corpuscular HGB Conc 32.7 % (30-36); Mean Corpuscular Hemoglobin 30.6 PG (26-34); Mean Corpuscular Volume 93.7 fL (80-100); Monocytes Absolute Auto 300 /uL (0-900); Monocytes Percent Auto 4.4 % (3-14); Neutrophils Absolute Auto 5700 /uL (1500-7000); Platelet Count 237 X10^3/uL (150-400); Red Blood Cell Count 4.94 X10^6/uL (4.5-5.9); Red Cell Distribution Width 14.8 % (11.6-14.8); White Blood Cell Count 6.7 X10^3/uL (4.5-11.0)
[2022-10-01 12:22] LABS: Alanine Aminotransferase 31 IU/L (<50); Albumin 4.3 g/dL (3.5-5.0); Albumin Globulin Ratio 1.6 (1.0-2.8); Alkaline Phosphatase 73 U/L (38-126); Aspartate Aminotransferase 25 IU/L (17-59); BUN Creatinine Ratio 13.6 (6-22); Bilirubin Total 0.7 mg/dL (0.2-1.3); Blood Urea Nitrogen 15 mg/dL (9-20); Calcium 9.4 mg/dL (8.4-10.2); Carbon Dioxide 29 mmol/L (22-32); Chloride 101 mmol/L (98-107); Estimated Glomerular Filt Rate > 60 mL/min (>60); Globulin 2.7 g/dL (1.7-4.1); Glucose 120 mg/dL (80-110); HEMOLYSIS < 15 (0-50); Potassium 4.8 mmol/L (3.4-5.1); Sodium 139 mmol/L (137-145)
[2022-10-01 12:59] LABS: Prostate Specific Antigen 0.998 ng/mL (0.10-4.00)
[2022-10-09 09:30] LABS: Percent Free Testosterone 2.21 % (1.50-4.20); Testosterone Free 9.64 ng/dL (5.00-21.00); Testosterone Total 436.2 ng/dL (264.0-916.0)
== END ==
PROVIDERS: PCP Family Medicine; Referring Provider Orthopaedic Surgery Orthopaedic Surgery of the Spine; Visit Provider Orthopaedic Surgery Orthopaedic Surgery of the Spine
DX: Z01.818 Encounter for other preprocedural examination (principal); R79.89 Other specified abnormal findings of blood chemistry; Z01.812 Encounter for preprocedural laboratory examination; G45.9 Transient cerebral ischemic attack, unspecified; K21.00 Gastro-esophageal reflux disease with esophagitis, without bleeding
CPT/HCPCS: 36415; 80053; 84153; 84402; 84403; 85025; 93005

== ENCOUNTER → 2023-01-03 13:47 | Outpatient (CLI) | payer MEDICARE, OTHER, SELFPAY ==
[2023-01-03 14:30] LABS: Hemoglobin A1C% w Est Avg Glu 6.1 % (4.0-6.0)
[2023-01-03 14:48] LABS: Alanine Aminotransferase 61 IU/L (<50); Albumin 4.5 g/dL (3.5-5.0); Albumin Globulin Ratio 1.5 (1.0-2.8); Alkaline Phosphatase 61 U/L (38-126); Aspartate Aminotransferase 39 IU/L (17-59); BUN Creatinine Ratio 25.9 (6-22); Bilirubin Total 0.8 mg/dL (0.2-1.3); Blood Urea Nitrogen 29 mg/dL (9-20); Calcium 9.7 mg/dL (8.4-10.2); Carbon Dioxide 35 mmol/L (22-32); Chloride 98 mmol/L (98-107); Estimated Glomerular Filt Rate > 60 mL/min (>60); Globulin 3.1 g/dL (1.7-4.1); Glucose 124 mg/dL (80-110); HEMOLYSIS < 15 (0-50); Potassium 4.8 mmol/L (3.4-5.1); Sodium 137 mmol/L (137-145); Total Protein 7.6 g/dL (6.3-8.2)
[2023-01-16 09:14] LABS: Percent Free Testosterone 1.05 % (1.50-4.20); Testosterone Free 0.03 ng/dL (5.00-21.00); Testosterone Total 2.5 ng/dL (264.0-916.0)
== END ==
PROVIDERS: PCP Family Medicine; Referring Provider Family Medicine; Visit Provider Family Medicine
DX: R73.03 Prediabetes (principal); R79.89 Other specified abnormal findings of blood chemistry
CPT/HCPCS: 36415; 80053; 83036; 84402; 84403

== ENCOUNTER → 2023-02-03 11:31 | Outpatient (CLI) | payer MEDICARE, OTHER, SELFPAY ==
[2023-02-03 12:42] LABS: Add Manual Diff / Slide Review NO; Basophils Absolute Auto 0 /uL (0-100); Basophils Percent Auto 0.1 % (0-2); Eosinophils Absolute Auto 0 /uL (0-450); Eosinophils Percent Auto 0.1 % (2-4); Hematocrit 41.3 % (41-53); Hemoglobin 13.7 g/dL (13.5-17.5); Lymphocytes Absolute Auto 600 /uL (1100-4500); Lymphocytes Percent Auto 6.4 % (25-40); Mean Corpuscular HGB Conc 33.1 % (30-36); Mean Corpuscular Hemoglobin 33.3 PG (26-34); Mean Corpuscular Volume 100.5 fL (80-100); Monocytes Absolute Auto 300 /uL (0-900); Monocytes Percent Auto 3.8 % (3-14); Neutrophils Absolute Auto 7900 /uL (1500-7000); Neutrophils Percent Auto 89.6 % (50-75); Platelet Count 209 X10^3/uL (150-400); Red Blood Cell Count 4.11 X10^6/uL (4.5-5.9); White Blood Cell Count 8.8 X10^3/uL (4.5-11.0)
[2023-02-03 13:21] LABS: BUN Creatinine Ratio 17.7 (6-22); Blood Urea Nitrogen 20 mg/dL (9-20); Calcium 9.6 mg/dL (8.4-10.2); Carbon Dioxide 37 mmol/L (22-32); Chloride 100 mmol/L (98-107); Estimated Glomerular Filt Rate > 60 mL/min (>60); Glucose 131 mg/dL (80-110); HEMOLYSIS < 15 (0-50); Sodium 139 mmol/L (137-145)
[2023-02-03 13:27] LABS: Potassium 5.7 mmol/L (3.4-5.1)
== END ==
PROVIDERS: PCP Family Medicine; Referring Provider Orthopaedic Surgery Orthopaedic Surgery of the Spine; Visit Provider Orthopaedic Surgery Orthopaedic Surgery of the Spine
DX: Z01.812 Encounter for preprocedural laboratory examination (principal)
CPT/HCPCS: 36415; 80048; 85025

== ENCOUNTER 2023-02-24 10:12 | Day surgery (SDC) | payer MEDICARE, OTHER, SELFPAY ==
[2023-02-20 08:51] VITALS: BMI 31.4
[2023-02-24] VITALS (17 sets, daily range): BP systolic 143–183; BP diastolic 78–99; PULSE 62–84; RESP 12–21; TEMP 36.6–38.3; O2SAT 92–99; BMI 31.4
[2023-02-24 11:28] LABS: COVID19 -Nasal RAPID Negative (Negative)
[2023-02-24] MEDS: LACTATED RINGERS 1,000 ML 42 ML IV ×2 (11:30→13:27)
--- NOTE | 2023-02-24 12:04 | PM.PREOP ---
Pre-operative Note COVID-19 COVID-19 status: Not tested Criteria for continued procedure: Expected advancement of disease process, Possibility delay results in more complex future surgery or treatment, Increased loss of function, Continuing or worsening of significant or severe pain, Deterioration of the patient's condition or overall health and Delay expected to result in less-positive ultimate med/surg outcome Interval Note History & Physical reviewed/Exam performed by Physician: Yes Changes to H&P: No
[2023-02-24] MEDS: CEFAZOLIN 2 GM/100 ML PREMIX 100 ML IV ×2 (13:05→20:34)
--- NOTE | 2023-02-24 13:27 | SUR.OPER ---
Prone on spine table, head in foam head support, padded chest and pelvic supports, gel pad at knees, lower legs supported by pillows; nipples, genitalia and toes free of pressure, arms secured on foam padded arm boards at <90 degrees abduction. Tape over blanket at thigh secured to table.
[2023-02-24] MEDS: BUPIVACAINE 0.25% (PF) 30 ML, EPINEPHrine 0.3 MG INJ (13:28)
--- NOTE | 2023-02-24 14:10 | PM.OP.1 ---
Operative Date/Time/Diagnoses Date of procedure: 02/24/23 Time of procedure: 13:00 Pre-op diagnosis: 1. L3-4 spinal stenosis with neurogenic claudication 2. Epidural lipomatosis Post-op diagnosis: same Procedure & Clinicians Procedure: 1. L3-4 laminectomies and bilateral partial facetecmies 2. Utilization of microsurgical technique and operating microscope Same procedure as scheduled: Yes Indications: Patient has been having chronic back pain and worsening lumbar radiculopathy and symptoms of neurogenic claudication. Patient failed multiple conservative management with worsening pain weakness and numbness in his lower extremity. Patient has been having difficulty performing activity of daily living. After discussing risks benefits of treatment options, patient elected proceed with surgery. Surgeon: Chanel Patton Social Services Counselor: Chasity Blanc Click Yes if Unassisted: No Anesthesia Type: General Operative Notes Closure Type: primary Specimen(s): none sent Estimated Blood Loss (mL): 5 Blood products transfused: none Procedure in detail: Patient was seen in the preoperative area. Risks and benefits of the surgery was discussed with the patient. Informed consent was obtained from the patient and placed in the chart. Surgical site was marked. Patient was taken to the operative room. General anesthesia was administered. Prophylactic antibiotic was given to the patient less than 30 min before the incision was made. Patient was placed into a prone position on the Duane table. Patient's back was then prepped and draped in the sterile fashion. Time-out was performed at this time. Using AP and lateral C-arm imaging the interval between L3-4 was identified and marked on patient's back. A 1 inch incision 1 in from midline was made on the left side. The fascia was incised in line with skin incision. Globus MARS retractors was placed inside the incision and docked onto the L3 lamina. Using microsurgical technique and operating microscope, a all 3 laminectomy was performed using a Kerrison rongeur. Liagamentum flavum was resected at the site of the laminotomy. Either side of the dura was exposed. Bilateral partial facetcomies was performed to further decompress the lateral recess. After the laminectomy was completed, the area medial lateral superior and inferior to the area of the laminectomy was inspected and explored using a micro curette. No other impinging structure was identified. The wound was then irrigated with sterile normal saline. 40 mg Depo-Medrol was placed into the epidural space. The deep fascia was closed with 1-0 Vicryl. The subcutaneous tissue was closed with 2-0 Vicryl. The skin was closed with skin xavier. Patient tolerated the procedure well. There were no complications. Patient was transferred recovery room in stable condition. Complications: none Post-operative Condition: stable Disposition: PACU Plan for aftercare: Discharge to home
--- NOTE | 2023-02-24 15:30 | SUR.PHASEI ---
admitted to 215. has 32 steps to get up to his condo. agrees with decision. pt has left side deficits from previous stroke, hx of solw waking from anesthesia.
--- NOTE | 2023-02-24 15:48 | DI.RAD.S_ITS ---
PROCEDURE: XR LUMBAR SPINE 2-3V INDICATIONS: L3-4 LAMINECTOMY TECHNIQUE: 2 views of the lumbar spine were acquired. COMPARISON: None. FINDINGS: Fluoroscopic guidance utilized for an L3-4 laminectomy. IMPRESSION: Fluoroscopic guidance utilized for an L3-4 laminectomy rim Dictated by: Vernon Camargo M.D. on 02/24/2023 at 16:38 Approved by: Vernon Camargo M.D. on 02/24/2023 at 16:38
[2023-02-24] MEDS: LACTATED RINGERS 1,000 ML 125 ML IV ×2 (16:13→20:12)
[2023-02-24] MEDS: BACLOFEN 10 MG TABLET PO ×2 (18:12→20:36)
[2023-02-24] MEDS: AMIODARONE 200 MG TABLET PO (18:13)
[2023-02-24] MEDS: GABAPENTIN 400 MG CAPSULE PO ×2 (18:13→20:33)
--- NOTE | 2023-02-24 18:20 | PC.NURSE ---
Patients blood pressure 143/82.
[2023-02-24] MEDS: ACETAMINOPHEN 325 MG TABLET 650 MG PO (20:31)
[2023-02-24] MEDS: ATORVASTATIN 20 MG TABLET 10 MG PO (20:32)
[2023-02-24] MEDS: SENNOSIDES 8.6 MG TABLET 17.2 MG PO (20:33)
[2023-02-24] MEDS: levETIRAcetam 250 MG TABLET 500 MG PO (20:33)
[2023-02-24] MEDS: DOCUSATE 100 MG CAPSULE PO (20:33)
[2023-02-24] MEDS: MULTIVITAMIN 1 TABLET 1 TAB PO (20:33)
[2023-02-24] MEDS: PANTOPRAZOLE DR 40 MG TABLET PO (20:33)
[2023-02-24] MEDS: carvediloL 3.125 MG TABLET 6.25 MG PO (20:33)
[2023-02-24] MEDS: GABAPENTIN 100 MG CAPSULE PO (20:33)
[2023-02-24] MEDS: TRIMETH/SULFA 160/800 (DS) TABLET 0.5 TAB PO (20:34)
--- NOTE | 2023-02-24 21:52 | PC.NURSE ---
Addendum entered by Keila Corbin R.N. 02/24/23 22:30: Temp now back down to 100.8. Patient provided with incentive spirometer and instructions given. Able to reach up to 1999. Original Note: Patient is alert and oriented. [place] wearing bilateral, rechargeable hearing aids. Breath sounds CTA with RA sat of 94%. HRR w/BP of 144/78. Denies nausea. BT present but has not yet passed flatus. Complaining at shift change about feeling urge to void but unable to do so. Gotten out of bed to stand to void and able to void only 100cc. Bladder scan showing 616cc so straight cath done with UOP of 900cc. Now voiding frequently and dribbling. Is able to turn himself in bed but needs reminders of log rolling. Was out of bed with 2 assist + walker but has not ambulated as yet. Dressing to back is intact with serosanguinous drainage noted at lower edge. CMS is intact bilaterally. Does have weakness in left extremities related to history of CVA; tremoring also noted in left UE. Wearing bilateral calf SCD's. Fall risk score is high and bed alarm is activated. Temp when initially checked was 100.8 so was medicated with Tylenol. Discussed importance of CDB. On recheck temp was 101 so ice pack applied to posterior neck and cool wash cloths to forehead.
[2023-02-25] MEDS: OXYCODONE IR 5 MG TABLET PO ×2 (00:04→10:17)
[2023-02-25 00:53] VITALS: BP 147/76; PULSE 81; RESP 18; TEMP 37.1; O2SAT 93
[2023-02-25 04:20] VITALS: BP 148/95; PULSE 86; RESP 20; TEMP 36.5; O2SAT 95
[2023-02-25] MEDS: CEFAZOLIN 2 GM/100 ML PREMIX 100 ML IV (05:01)
[2023-02-25 05:36] LABS: Hematocrit 39.9 % (41-53); Hemoglobin 13.4 g/dL (13.5-17.5)
--- NOTE | 2023-02-25 07:55 | PM.DS.1 ---
History of Present Illness History of Present Illness Date Patient Seen: 02/25/23 Time Patient Seen: 07:00 Chief complaint: Laminectomy Narrative: Patient is lying comfortably in bed this morning. He states his pain has been well controlled with medication. He denies numbness and tingling in the distal extremities. He is looking forward to working with Physical therapy this morning and if all goes well he would like to go home. Discharge Providers Provider Date of admission: 02/24/23 10:12 Discharge Date: 02/25/23 Primary care physician: Aristides Lewis DO Consults: 02/24/23 15:16 Consult to Occupational Therapy Evaluate & Treat Comment: Physician Instructions: Evaluate and treat Consult to Physical Therapy Evaluate & Treat Comment: Physician Instructions: Evaluate and Treat Discharge provider: Chasity Blanc PA-C Summary Hospital Course Discharge Diagnosis: s/p Laminectomy Hospital Course: Operative Date/Time/Diagnoses Date of procedure: 02/24/23 Time of procedure: 13:00 Pre-op diagnosis: 1. L3-4 spinal stenosis with neurogenic claudication 2. Epidural lipomatosis Post-op diagnosis: same Procedure & Clinicians Procedure: 1. L3-4 laminectomies and bilateral partial facetecmies 2. Utilization of microsurgical technique and operating microscope Same procedure as scheduled: Yes Indications: Patient has been having chronic back pain and worsening lumbar radiculopathy and symptoms of neurogenic claudication. Patient failed multiple conservative management with worsening pain weakness and numbness in his lower extremity.? Patient has been having difficulty performing activity of daily living.? After discussing risks benefits of treatment options, patient elected proceed with surgery. Surgeon: Chanel Patton Adjunct Professor Of Voice: Chasity Blanc Click Yes if Unassisted: No Anesthesia Type: General Operative Notes Closure Type: primary Specimen(s): none sent Estimated Blood Loss (mL): 5 Blood products transfused: none Status at Discharge Cognitive/behavioral status at discharge: oriented Functional status at discharge: uses cane/walker Overall status at discharge: patient is progressing back to baseline Exam Vital Signs (past 8 hours): - 02/25/23 00:53 02/25/23 04:20 Temperature 98.8 F 97.7 F Pulse Rate 81 86 Respiratory Rate 18 20 Blood Pressure 147/76 H 148/95 H Pulse Oximetry 93 95 Oxygen Flow Rate 0 0 Oxygen Delivery Method Room Air Oxygen Flow Rate 0 Objective Labs 02/25/23 05:14 Labs: Laboratory Results - last 24 hr 02/24/23 02/25/23 11:04 05:14 Hgb 13.4 L Hct 39.9 L SARS-CoV-2 (PCR) Negative PFSH Medical History Anticoagulation adequate External hemorrhoid GERD (gastroesophageal reflux disease) Hearing impaired History of atrial fibrillation History of CVA (cerebrovascular accident) (~2014) Hyperglycemia Leg edema, left Low testosterone in male Pre-diabetes Recurrent ventricular tachycardia Rib lesion Sarcoid myocarditis Seizure disorder TIA (transient ischemic attack) Transverse myelitis Well adult exam Surgical History AICD (automatic cardioverter/defibrillator) present History of nasal surgery History of radiofrequency ablation procedure for cardiac arrhythmia History of surgery Hx of tonsillectomy Scrotal injury Social History household members: spouse Smoking Status: Former smoker alcohol intake: former Discharge Assessment & Plan Assessment and Plan Assessment: Patient is progressing as expected after laminectomy. Plan of Treatment: Plan for physical therapy this morning and discharge to home if safe and cleared to do so. Keep dressing clean, dry, and intact until follow up with Orthopedics 2 weeks after surgery. Discharge Plan Discharge Plan Patient Disposition: Home Provider Discharge Comment: Discharge once cleared by PT Discharge orders & Medications Prescriptions: New oxycodone 5 mg tablet 5 mg PO Q4H PRN (Reason: pain) Qty: 30 0RF Continued hydrocortisone [Anusol-HC] 2.5 % cream with perineal applicator 1 applic [place] BID-QID PRN (Reason: hemorrhoids) Qty: 30 2RF (DME) NEEDLE 20G X 1 INCH See Rx Instructions .Route .MEDSUPPLY Qty: 12 3RF Rx Instructions: USE TO ADMINISTER TESTOSTERONE INJECTION ONCE EVERY 2 WKS. testosterone cypionate [Depo-Testosterone] 200 mg/mL oil 80 mg IM Q2W Qty: 10 0RF Rx Instructions: Must last 20 weeks Eliquis 5 mg tablet 5 mg PO BID carvedilol 3.125 mg tablet 6.25 mg PO BID Rx Instructions: must administer with a meal/food gabapentin 400 mg capsule 400 mg PO QID baclofen 20 mg tablet 20 mg PO .COMPLEX Rx Instructions: 20 mg PO 2 tab QAM, 2 tabs at Noon, 1 tab 1700, and 1 tab QHS; prednisone 10 mg tablet 30 mg PO QAM sulfamethoxazole-trimethoprim 400-80 mg Tablet 1 tab PO BEDTIME levetiracetam [Keppra] 500 mg Tablet 500 mg PO BID pantoprazole 40 mg Tablet,Delayed Release (Dr/Ec) 40 mg PO BID rosuvastatin 5 mg Tablet 5 mg PO DAILY amiodarone 200 mg tablet 200 mg PO QPM acetaminophen 500 mg Tablet 1,000 - 1,500 mg PO BID PRN (Reason: Pain) methotrexate sodium 2.5 mg Tablet 10 mg PO QWEEK Patient Comments: Takes every Friday folic acid 1 mg Tablet 1 mg PO DAILY gabapentin 100 mg Capsule 100 mg PO BEDTIME Patient Comments: Occasional additional 300mg @ 0300 prn multivitamin Tablet 1 tab PO BID Follow up/Referrals: Aristides Lewis DO [Primary Care Provider] - Diet/Activity/Treatments Diet: Diet as Tolerated and Regular Activity: Limit bending twisting and lifting Skin/Wound/Dressing Care Report to your healthcare provider any signs of infection, such as:: chills, fever, night sweats, unusual drainage and unusual redness Dressing: Keep dressing clean dry intact May shower with dressing covered and kept dry Visit Report/Discharge Packet Instructions: DI for Laminectomy, DI for Prescription Opioid Use Stand Alone Forms: Patient Portal/API, Stroke Signs & Symptoms, Surgery Discharge Discharge Data Primary Care Provider: Aristides Lewis Quality VTE Deep Vein Thrombosis/Pulmonary Embolism Present on Admission: No
[2023-02-25] MEDS: levETIRAcetam 250 MG TABLET 500 MG PO (08:11)
[2023-02-25] MEDS: FOLIC ACID 1 MG TABLET PO (08:11)
[2023-02-25] MEDS: DOCUSATE 100 MG CAPSULE PO (08:12)
[2023-02-25] MEDS: MULTIVITAMIN 1 TABLET 1 TAB PO (08:12)
[2023-02-25] MEDS: ACETAMINOPHEN 325 MG TABLET 650 MG PO (08:12)
[2023-02-25 08:13] VITALS: BP 178/95; PULSE 74
[2023-02-25] MEDS: PANTOPRAZOLE DR 40 MG TABLET PO (08:13)
[2023-02-25] MEDS: predniSONE 20 MG TABLET 30 MG PO (08:13)
[2023-02-25] MEDS: GABAPENTIN 400 MG CAPSULE PO ×2 (08:13→12:29)
[2023-02-25] MEDS: carvediloL 3.125 MG TABLET 6.25 MG PO (08:13)
[2023-02-25] MEDS: BACLOFEN 10 MG TABLET 20 MG PO ×2 (08:21→12:29)
[2023-02-25 09:02] VITALS: BP 154/86; PULSE 66; RESP 18; TEMP 36.9; O2SAT 95
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
[2023-02-25] MEDS: polyethylene glycoL 3350 17 GM POWD.PACK PO (10:17)
--- NOTE | 2023-02-25 12:10 | OT.IP.EVAL ---
Current Diagnoses Spinal stenosis, lumbar region with neurogenic claudication (02/24/23) Surgery Performed Operation Date: 02/24/23 12:15 Actual Procedures p L3-4 Laminectomy - Chanel Patton MD Past Medical History (Last Reviewed 02/25/23 @ 10:53 by Chasity Blanc PA-C) Anticoagulation adequate External hemorrhoid GERD (gastroesophageal reflux disease) Hearing impaired History of atrial fibrillation History of CVA (cerebrovascular accident) (~2014) Hyperglycemia Leg edema, left Low testosterone in male Pre-diabetes Recurrent ventricular tachycardia Rib lesion Sarcoid myocarditis Seizure disorder TIA (transient ischemic attack) Transverse myelitis Well adult exam Surgical History (Last Reviewed 02/25/23 @ 10:53 by Chasity Blanc PA-C) AICD (automatic cardioverter/defibrillator) present History of nasal surgery History of radiofrequency ablation procedure for cardiac arrhythmia History of surgery Hx of tonsillectomy Scrotal injury Occupational Therapy Inpatient Evaluation/Re-Eval M1 PT/OT-IP Prior Functional Status Start: 02/25/23 12:50 Freq: NEEDED Status: Active Protocol: Document 02/25/23 10:25 [facility] (Rec: 02/25/23 13:14 [facility] [id number]) Medical Review Prior Functional Status Communication independent Mobility and Gait Pt states used a walking stick at times, but otherwise did not use a device to walk with. Activities of Daily Living and IADL's Pt able to do all his ADL's with increased time Prior Functional Level (Other details) Pt to be off from work for two days but states able to take off longer if needed. Pt's states the fire department will be able to get pt up the steps as pt has 32 steps total in order to get into his condo as the elevators are down at this time. Social History Household Members spouse Living Arrangements Apartment/Condo Number of Stairs To Enter/Railing? 8 steps with bilateral rails and landing x4. Home Environment High Toilet,Walk in Shower Home Equipment Shower Seat without Backrest Additional Social History Comment Pt has a walking stick, and 3 wheeled walker, pt plans on sleeping in his recliner initially. M2 OT-IP Current Condition Start: 02/25/23 12:50 Freq: Status: Active Protocol: Document 02/25/23 10:25 [facility] (Rec: 02/25/23 13:14 [facility] [id number]) Occupational Therapy Current Condition Current Condition Evaluation Date 02/25/23 Treatment Diagnosis S/P L3-L4 laminectomies and bilateral partial facetemoies Diagnosis Onset Date 02/24/23 Post Operative Precautions Lumbar Precautions Log Roll,No Twisting,Limit Bending,Lifting Restriction of 10 lbs,Gait Belt above Incisional Area M3 OT- IP Subjective and Pain Start: 02/25/23 12:50 Freq: Status: Active Protocol: Document 02/25/23 10:25 [facility] (Rec: 02/25/23 13:14 [facility] [id number]) OT- Subjective Occupational Therapy Visit Type Type Initial Evaluation Visit Start Time 10:25 Visit Stop Time 11:26 Total Visit Minutes 61 Occupational Therapy Visit Comments Patient Comments Pt already up in the recliner and willing to do OT eval. Pt' s came in part way and able to participate in caregiver training. Patient/Caregiver Goals To go home. OT Pain Assessment Pain When Pain Assessed At Rest Pain Present Pain Present Pain Reported Location back Intensity 3 Scale Used Numeric (0 - 10) M4 OT- IP ADL's Start: 02/25/23 12:50 Freq: Status: Active Protocol: Document 02/25/23 10:25 [facility] (Rec: 02/25/23 13:14 [facility] [id number]) OT [id number] Comments OT Self-Feeding Comments Not at meal time , but will need assist with set-up due to left hand tremors, pt has old CVA 5 years ago. OT ADL-Grooming Comments OT Grooming Comments NOt performed. OT ADL-Oral Care Comments Oral Care Comments Not performed. OT ADL-Dressing General Eval Lower Body Dressing Ability Maximum Assistance Areas Needing Assistance Socks Comments OT Dressing Comments Assist for socks. Pt's aware that it will be best for pt to sit up for LB dressing needs and will need assist as prior pt bends forward for most dressing and toileting needs. OT ADL-Toileting Comments OT Toileting Comments Pt not having to go. Suggested pt take a urinal home. OT ADL-Bathing Comments OT Bathing Comments Not performed. M5 OT- IP IADL's Start: 02/25/23 12:50 Freq: Status: Active Protocol: Document 02/25/23 10:25 [facility] (Rec: 02/25/23 13:14 [facility] [id number]) OT-Instrumental Activities of Daily Living Home Safety Awareness Awareness of Need for Assistance at Home Decreased Awareness Home Safety Comments Pt needing cues to slow down and take his time. At this time it would be best for pt's to assist pt for all ADl ,IADl, and mobility needs. M6 OT- IP Functional Cognition Start: 02/25/23 12:50 Freq: Status: Active Protocol: Document 02/25/23 10:25 [facility] (Rec: 02/25/23 13:14 [facility] [id number]) Cognitive Factors Limiting Selfcare Function Cognitive Ability Level of Alertness Alert Patient Orientation Name,Place,Situation Attention Span Ability Capable of Focused Attention, Capable of Sustained Attention Ability to Follow Commands Able to Follow One Step Commands Safety Awareness Decreased Ability to Apply Precautions,Underestimates Need for Assistance Cognitive Comments Cognitive Assessment Comments Pt able to states all precautions but needing cues to incorporate especially for log rolling needs. OT- Vision and Hearing OT- Vision Assessment Visual Acuity Glasses All The Time M7 OT- IP Mobility and Balance Start: 02/25/23 12:50 Freq: Status: Active Protocol: Document 02/25/23 10:25 [facility] (Rec: 02/25/23 13:14 [facility] [id number]) OT- Bed Mobility Assessment Rolling Type of Rolling Roll to Right Supine to Sit Supine to Sit Assist Contact Guard Assistance Sit to Supine Sit to Supine Assist Moderate Assistance OT-Transfer Assessment Sit to and From Stand Sit to and from Stand Contact Guard Assistance, Minimal Assistance,Moderate Assistance Transfers Transfer Ability Contact Guard Assistance, Moderate Assistance Technique Transfer Destination Bed,Chair Transfer Technique Stand Step Pivot Devices Transfer Assistive Devices Gait Belt,Large Based Quad Cane,Front Wheeled Walker,Guillaume Walker Comments Mobility Comments ROMMEL to stand and MAX AX with pt's walking stick as very unsteady on his feet and hyperextends his LLE. Pt much steadier with the hemiwalker and needing CGA for balance. Able to try the quad cane and still needing MODA for steadying. Able to educated/ train pt's to quyen/doff the gait belt and to assist the pt when up on his feet. Pt having loss of balance and needing assist to steady as pt going too fast. OT- Balance Assessment Sitting Balance and Reactions Static Sitting Balance Ability Good Dynamic Sitting Balance Ability Fair Standing Balance and Reactions Static Standing Balance Ability Fair Dynamic Standing Balance Ability Poor M8 OT- IP Objective Assessments Start: 02/25/23 12:50 Freq: Status: Active Protocol: Document 02/25/23 10:25 [facility] (Rec: 02/25/23 13:14 [facility] [id number]) OT-Muscle Tone Assessment Comments Muscle Tone Comments Increased tone LUE M9 OT- IP Assessment and Plan Start: 02/25/23 12:50 Freq: Status: Active Protocol: Document 02/25/23 10:25 [facility] (Rec: 02/25/23 13:14 [facility] [id number]) OT Summary Assessment and Plan Potential Rehabilitation Potential Good Analytic Complexity at Evaluation Moderate Summary OT Impairments Pain,Strength,Balance, Functional Mobility,Self- Feeding,Grooming,Dressing, Toileting,Bathing,Toilet Transfers,Shower Transfers, Activity Tolerance Progress Towards Goals Slow Progress due to Activity Tolerance,Slow Progress due to Cognition Assessment Summary Pt MOD complexity and main barriers are decreased balance and steps at home. Ot has initiated caregiver training with pt's and best determined that a guillaume-walker will be the safest for pt to use for mobilization. Pt has had a CVA 5 years ago and pt states when he is tired that residual effects show up for his left UE and LE. Pt a bit unsteady on his feet and will benefit from more caregiver training. Pt's wanting to look into SNF versus home health pending how pt improves . Pt states did not sleep well last night. Goals Self-Feeding Goal Independent Grooming Goal Independent Dressing Goal Minimal Assistance Toileting Goal Minimal Assistance Bathing Goal Minimal Assistance Toilet Transfer Goal Standby Assistance Shower Transfer Goal Contact Guard Assistance Days to Meet Goals 5 Frequency of Treatment Frequency Of Treatment Once a Day Treatment Plan OT Treatment Plan ADL Training,Functional Mobility,Patient/Family Education,Discharge Planning Other Treatment Recommendations and Next caregiver training Treatment Focus Discharge Recommendations OT Discharge Recommendations Home with 24/7 Assist Available,Home Health,SNF Rehab Other Discharge Recommendations Pt will need assist to help get into the house, per will have the fire department assist to help get him into the condo. Home Equipment Needs guillaume walker Transportation Needs at Discharge Private Vehicle
--- NOTE | 2023-02-25 13:21 | PT.IIE ---
Current Diagnoses Spinal stenosis, lumbar region with neurogenic claudication (02/24/23) Surgery Performed Operation Date: 02/24/23 12:15 Actual Procedures p L3-4 Laminectomy - Chanel Patton MD Surgical History (Last Reviewed 02/25/23 @ 10:53 by Chasity Blanc PA-C) AICD (automatic cardioverter/defibrillator) present History of nasal surgery History of radiofrequency ablation procedure for cardiac arrhythmia History of surgery Hx of tonsillectomy Scrotal injury Medical History (Last Reviewed 02/25/23 @ 10:53 by Chasity Blanc PA-C) Anticoagulation adequate External hemorrhoid GERD (gastroesophageal reflux disease) Hearing impaired History of atrial fibrillation History of CVA (cerebrovascular accident) (~2014) Hyperglycemia Leg edema, left Low testosterone in male Pre-diabetes Recurrent ventricular tachycardia Rib lesion Sarcoid myocarditis Seizure disorder TIA (transient ischemic attack) Transverse myelitis Well adult exam Physical Therapy Inpatient Evaluation/Re-Eval M1 PT/OT-IP Prior Functional Status Start: 02/25/23 12:43 Freq: NEEDED Status: Active Protocol: Document 02/25/23 12:43 [facility] (Rec: 02/25/23 12:56 [facility] [id number]) Medical Review Prior Functional Status Medical History Reviewed Yes Diet/Fluid Consistency Regular Communication WFL Mobility and Gait Indep with walking stick Activities of Daily Living and IADL's Min A Social History Household Members spouse Living Arrangements Apartment/Condo Number of Floors (Floors) One Floor Number of Stairs To Enter/Railing? 32 with rail - has an elevator but it is currently broken Home Environment High Toilet,Walk in Shower Home Equipment Shower Seat without Backrest, Grab Bars In Shower Employment Status Retired Additional Social History Comment Has a 3WW also. M1 PT/OT-IP Prior Functional Status Start: 02/25/23 12:50 Freq: NEEDED Status: Active Protocol: Document 02/25/23 10:25 [facility] (Rec: 02/25/23 13:14 [facility] [id number]) Medical Review Prior Functional Status Communication independent Mobility and Gait Pt states used a walking stick at times, but otherwise did not use a device to walk with. Activities of Daily Living and IADL's Pt able to do all his ADL's with increased time Prior Functional Level (Other details) Pt to be off from work for two days but states able to take off longer if needed. Pt's states the fire department will be able to get pt up the steps as pt has 32 steps total in order to gett into his condo as the elevators are down at this time. Social History Household Members spouse Living Arrangements Apartment/Condo Number of Stairs To Enter/Railing? 8 steps with bilateral rails and landing x4. Home Environment High Toilet,Walk in Shower Home Equipment Shower Seat without Backrest Additional Social History Comment Pt has a walking stick, and 3 wheeled walker, pt plans on sleeping in his recliner initially. M2 PT-IP Current Condition Start: 02/25/23 12:43 Freq: NEEDED Status: Active Protocol: Document 02/25/23 12:43 [facility] (Rec: 02/25/23 12:56 [facility] [id number]) Physical Therapy Current Condition Current Condition Evaluation Date 02/25/23 Treatment Diagnosis s/p L3-4 laminectomies and bilateral partial facetectomies Onset Date 02/24/23 M3 PT-IP Subjective Start: 02/25/23 12:43 Freq: NEEDED Status: Active Protocol: Document 02/25/23 12:43 [facility] (Rec: 02/25/23 12:56 [facility] [id number]) Subjective Physical Therapy Visit Type Type Initial Evaluation Visit Start Time 12:05 Visit Stop Time 12:35 Total Visit Minutes 30 Physical Therapy Visit Comments Patient Comments Patient alert in bed, present. Patient reported no pain at rest. He was agreeable to work with PT. reported she is working on getting a hemiwalker from [employer] or ordering one online . She also reported she has spoken with the fire department and they are planning to assist gettingn patient up their stairs to their condo when he goes home. Patient Goals To be able to walk around town again. Therapy Pain Assessment Pain When Pain Assessed During Mobility Pain Present Pain Present Denied Pain M4 PT-IP Mobility and Gait Start: 02/25/23 12:43 Freq: NEEDED Status: Active Protocol: Document 02/25/23 12:43 [facility] (Rec: 02/25/23 12:56 [facility] [id number]) PT-Bed Mobility Assessment Rolling Type of Rolling Log Rolling Level of Assist Standby Assistance Supine to Sit Supine to Sit Standby Assistance Sit to Supine Sit to Supine Standby Assistance Scooting Scooting to Edge of Bed Standby Assistance PT-Transfer Assessment Sit to and From Stand Sit to and from Stand Standby Assistance Equipment Transfer Assistive Device Gait Belt,Jose Walker Transfers Transfer Destination Chair Transfer Technique Stand Step Pivot Transfer Ability Level of Assist Standby Assistance Comments Mobility Comments Cues for keeping trunk upright during sit to/from stand. Cues for slowing down log roll and breaking it up into roll then sit to reduce strain on lumbar spine. Patient able to demonstrate. Gait Assessment Gait Gait Assistance Required: Standby Assistance Distance (Feet) 250 Assistive Devices Assistive Device Gait Belt,Jose Walker Gait Deviations General Gait Pattern Ataxic Factors Limiting Gait Function Factors Limiting Gait Function Abnormal Tonal Influences Comments Gait Comments Baseline ataxia from prior stroke present. Able to take some steps holding jose-walker up in the air so trialed using walking stick, but patient less confident and slower with walking stick. Recommended jose-walker for home for now. Stair Climbing Assessment Comments Stair Climbing Comments Did not perform as patient will have assistance at home. Patient demonstrates sufficient strength to be able to manage with help from fire department. PT-Balance Assessment Sitting Balance and Reactions Static Sitting Balance Ability Good Dynamic Sitting Balance Ability Good Standing Balance and Reactions Static Standing Balance Ability Good Dynamic Standing Balance Ability Fair Device Used Jose-walker M5 PT-IP Objective Assessments Start: 02/25/23 12:43 Freq: NEEDED Status: Active Protocol: Document 02/25/23 12:43 [facility] (Rec: 02/25/23 12:56 [facility] [id number]) Orientation Orientation/Cognition Level of Alertness Alert Orientation Name,Age,Birthday,Month,Date, Year,Day of Week,Place, Situation Language Function Ability No Deficits Noted Safety Awareness Understands Safety Issues Memory Description No Deficits Noted Gross Range of Motion Upper Extremity ROM Assessment Within Functional Limits Lower Extremity ROM Assessment Within Functional Limits Strength Upper Extremity Strength Assessment Within Functional Limits Lower Extremity Strength Assessment Within Functional Limits Comments Strength Comments LUE and LLE impaired due to prior stroke but able to manage for basic mobility. Muscle Tone Comments Muscle Tone Comments Spasticity noted throughout LUE/LLE M6 PT-IP Treatment Start: 02/25/23 12:43 Freq: NEEDED Status: Active Protocol: Document 02/25/23 12:43 [facility] (Rec: 02/25/23 12:56 [facility] [id number]) Physical Therapy Treatment Education Education Provided Precautions,Post-Op Packet, Safety M7 PT-IP Assessment and Plan Start: 02/25/23 12:43 Freq: NEEDED Status: Active Protocol: Document 02/25/23 12:43 [facility] (Rec: 02/25/23 12:56 [facility] [id number]) PT Summary Assessment and Plan Potential Rehabilitation Potential Excellent Status of Condition at Evaluation Stable Summary Impairments Balance,Coordination,Tone,Bed Mobility,Transfers,Gait Assessment Summary Patient is a 72 year old male who presents with impaired functional mobility due to the above impairments. He was able to perform all mobility tasks with close SBA due to increased fall risk. He required min cues for lumbar precautions, and was able to demonstrate good understanding with practice. was able to demonstrate ability to assist with ADL's and mobility at home using gait belt. Patient would benefit from jose-walker at least initially until he can transition to walking stick safely. Recommend HHPT as patient will be unable to manage stairs to participate in OPPT initially at d/c, then transition to OPPT when able to go up/down stairs with SBA. Otherwise, patient is appropriate to d/c home with 's assistance at this time. Frequency of Treatment Frequency Of Treatment Discharge Precautions Lumbar Precautions Log Roll,No Twisting,Limit Bending,Lifting Restriction of 10 lbs,Gait Belt above Incisional Area Recommendations To Nursing Amount of Assist Needed Standby Assistance Discharge Recommendations PT Discharge Recommendations Home with Assistance,Home Health Transportation Needs at Discharge Private Vehicle
== END 2023-02-25 13:32 | disposition home or self-care (01) ==
LOC: AC 02-25 13:04 → OR 02-25 13:45
PROVIDERS: PCP Family Medicine; Referring Provider Orthopaedic Surgery Orthopaedic Surgery of the Spine; Visit Provider Orthopaedic Surgery Orthopaedic Surgery of the Spine
PROC: (CPT 63047; principal; 2023-02-24 12:15)
DX: M48.062 Spinal stenosis, lumbar region with neurogenic claudication (principal); E88.2 Lipomatosis, not elsewhere classified; Z20.822 Contact with and (suspected) exposure to COVID-19
CPT/HCPCS: 63047; 36415; 72100; 76000; 85014; 85018; 87635; 97162; 97166; 97530; C9803; J0171; J0690; J1100; J1170; J2405; J2704; J2920; J3010

== ENCOUNTER → 2023-04-02 11:29 | Outpatient (CLI) | payer MEDICARE, OTHER, SELFPAY ==
[2023-02-24 10:21] VITALS: BMI 31.4
[2023-04-02 12:20] LABS: Add Manual Diff / Slide Review NO; Basophils Absolute Auto 0 /uL (0-100); Basophils Percent Auto 0.2 % (0-2); Eosinophils Absolute Auto 0 /uL (0-450); Eosinophils Percent Auto 0.2 % (2-4); Hematocrit 44.8 % (41-53); Lymphocytes Absolute Auto 600 /uL (1100-4500); Lymphocytes Percent Auto 9.8 % (25-40); Mean Corpuscular HGB Conc 33.5 % (30-36); Mean Corpuscular Hemoglobin 33.7 PG (26-34); Mean Corpuscular Volume 100.6 fL (80-100); Monocytes Absolute Auto 300 /uL (0-900); Monocytes Percent Auto 4.6 % (3-14); Neutrophils Absolute Auto 5600 /uL (1500-7000); Neutrophils Percent Auto 85.2 % (50-75); Platelet Count 190 X10^3/uL (150-400); Red Blood Cell Count 4.46 X10^6/uL (4.5-5.9); Red Cell Distribution Width 14.6 % (11.6-14.8); White Blood Cell Count 6.6 X10^3/uL (4.5-11.0)
[2023-04-02 13:04] LABS: Prostate Specific Antigen 0.696 ng/mL (0.10-4.00)
[2023-04-07 13:46] LABS: Percent Free Testosterone 1.43 % (1.50-4.20); Testosterone Free 3.91 ng/dL (5.00-21.00); Testosterone Total 273.7 ng/dL (264.0-916.0)
== END ==
PROVIDERS: PCP Family Medicine; Referring Provider Family Medicine; Visit Provider Family Medicine
DX: I25.10 Atherosclerotic heart disease of native coronary artery without angina pectoris (principal); R73.9 Hyperglycemia, unspecified
CPT/HCPCS: 36415; 84153; 84402; 84403; 85025

== ENCOUNTER 2023-04-12 16:29 | Emergency (ER) | payer MEDICARE, OTHER, SELFPAY ==
[2023-02-24 10:21] VITALS: BMI 31.4
[2023-04-12] VITALS (10 sets, daily range): BP systolic 164–202; BP diastolic 77–103; PULSE 61–68; RESP 15–28; TEMP 36.4; O2SAT 95–98; BMI 33.3
--- NOTE | 2023-04-12 16:41 | DI.CT.S_ITS ---
PROCEDURE: CT HEAD/BRAIN WO CON INDICATIONS: prior stroke, HTN, left side heavy TECHNIQUE: Noncontrast 4.5 mm thick angled axial sections acquired from the foramen magnum to the vertex, with coronal and sagittal reformats. For radiation dose reduction, the following was used: automated exposure control, adjustment of mA and/or kV according to patient size. COMPARISON: [facility], MR, MR MS BRAIN WITH/WITHOUT CONTRAST, 06/28/2022, 14:18. FINDINGS: Image quality: Excellent. CSF spaces: Basal cisterns are patent. No extra-axial fluid collections. Ventricles are normal in size and shape. Brain: No midline shift. No intracranial masses or hemorrhage. [place]-white matter interface is normal. Old right thalamic lacunar infarct noted. Mild atrophy and white matter chronic ischemic change. Atherosclerotic vascular calcification noted in the cavernous segments of both internal carotid arteries Skull and face: Calvarium and visualized facial bones are intact, without suspicious lesions. Sinuses: Visualized sinuses and mastoids are clear. IMPRESSION: Atrophy and chronic ischemic change and old right thalamic lacunar infarct. No acute hemorrhage or mass effect. Approved by: Clay Greer M.D. on 04/12/2023 at 17:39
--- NOTE | 2023-04-12 16:42 | DI.CT.S_ITS ---
PROCEDURE: CT ANGIO HEAD AND NECK INDICATIONS: prior CVA, left side heavy TECHNIQUE: After the administration of intravenous contrast, 1 mm thick sections acquired from the aortic arch through the [place]. Post-contrast 4.5 mm thick sections then re-acquired from the foramen magnum to the vertex. MIP reformats of the arterial vasculature were utilized. For radiation dose reduction, the following was used: automated exposure control, adjustment of mA and/or kV according to patient size. COMPARISON: [facility], CT, CT ANGIO HEAD AND NECK, 07/09/2021, 17:22. FINDINGS: Image quality: Excellent. HEAD CT ANGIOGRAPHY: Anterior circulation: Intracranial internal carotid arteries are normal in size and flow. The flow within the paired anterior cerebral arteries is normal and symmetric. The flow within the middle cerebral arteries is normal and symmetric. The anterior communicating artery is seen. No aneurysms are seen. Posterior circulation: Visualized portions of the vertebral arteries demonstrate normal caliber, and join to form a normal appearing basilar artery. There is a severe stenosis in the right P2 DIETITIAN RESEARCH without complete occlusion, similar to the prior exam. Left DIETITIAN RESEARCH unremarkable No aneurysms are seen. NECK CT ANGIOGRAPHY: Carotid system: The great vessels demonstrate a conventional anatomy as they arise from the aortic arch. The origins of the common carotid arteries appear patent. The common carotid arteries demonstrate normal caliber and courses. The bifurcation regions are both widely patent. The internal carotid arteries demonstrate normal calibers and courses. Posterior circulation: The origins of the vertebral arteries both appear widely patent. The more superior extracranial portions of both vertebral arteries also demonstrate normal courses and calibers. They join to form a normal appearing basilar artery. Soft tissues: Visualized neck soft tissues demonstrate no suspicious abnormalities. Bones: No suspicious bony lesions. Visualized cervical spine appears normally aligned. Degenerative disc disease and arthropathy in the lower cervical spine IMPRESSION: 1. Stable severe right P2 DIETITIAN RESEARCH stenosis. Otherwise, no large vessel occlusion, aneurysm or vascular malformation Any quantitative measurements of stenosis were performed using NASCET criteria. Approved by: Clay Greer M.D. on 04/12/2023 at 17:49
--- NOTE | 2023-04-12 17:09 | ED_ITS ---
HPI - General Adult General Chief complaint: Hypertension Stated complaint: high B/P Time Seen by Provider: 04/12/23 16:35 History of Present Illness HPI narrative: 72-year-old male with history of AFib, cardiac ablation, ventricular tachycardia, defibrillator, anticoagulated on Eliquis, prior stroke in 2015 with left-sided deficit, seizure disorder, transverse myelitis presents with his in the chief complaint of feeling a bit off since about 9:00 a.m. this morning. He states that on occasion the left side of his body (that which had been affected by prior stroke) feels tight but it usually goes away quicker than this. He had some difficulty with ambulation which is not necessarily new for him. But generally feels not quite at his baseline, his was concerned and took his blood pressure and found it to be well into the 200s. Paramedics were called and evaluated the patient at home and gave them reassurance but encouraged them to come be seen. Related Data Home Medications Medication Instructions Recorded Confirmed gabapentin 400 mg capsule 400 mg PO QID 10/09/20 04/17/23 apixaban 5 mg tablet (Eliquis) 5 mg PO BID 10/02/21 04/17/23 baclofen 20 mg tablet 20 mg PO .COMPLEX 10/02/21 04/17/23 carvedilol 3.125 mg tablet 6.25 mg PO BID 10/02/21 04/17/23 acetaminophen 500 mg tablet 1,000 - 1,500 mg PO BID PRN Pain 10/14/22 04/17/23 amiodarone 200 mg tablet 200 mg PO QPM 10/14/22 04/17/23 levetiracetam 500 mg tablet 500 mg PO BID 10/14/22 04/17/23 (Keppra) pantoprazole 40 mg tablet,delayed 40 mg PO BID 10/14/22 04/17/23 release rosuvastatin 5 mg tablet 5 mg PO DAILY 10/14/22 04/17/23 sulfamethoxazole 400 1 tab PO BEDTIME 10/14/22 04/17/23 mg-trimethoprim 80 mg tablet prednisone 10 mg tablet 30 mg PO QAM 11/14/22 04/17/23 folic acid 1 mg tablet 1 mg PO DAILY 02/07/23 04/17/23 gabapentin 100 mg capsule 100 mg PO BEDTIME 02/07/23 04/17/23 methotrexate sodium 2.5 mg tablet 10 mg PO QWEEK 02/07/23 04/17/23 multivitamin 1 tab PO BID 02/07/23 04/17/23 Previous Rx's Medication Instructions Recorded hydrocortisone 2.5 % topical cream 1 applic AL BID-QID PRN 04/24/22 with perineal applicator hemorrhoids #30 grams (Anusol-HC) NEEDLE #12 ea 01/06/23 testosterone cypionate 200 mg/mL 160 mg (0.8 mL) IM Q2W #10 mL 04/17/23 intramuscular oil (Depo-Testosterone) Allergies Allergy/AdvReac Type Severity Reaction Status Date / Time No Known Drug Allergies Allergy Verified 04/17/23 14:23 Review of Systems Review of Systems Narrative: GENERAL: See HPI HEENT: Denies sinus pain, ear pain, sore throat, difficulty swallowing, dizziness. RESPIRATORY: Denies dyspnea, cough, wheezing, hemoptysis, sputum. CARDIOVASCULAR: Denies chest pain, palpitations, orthopnea, edema, GASTROINTESTINAL: Denies nausea, vomiting, abdominal pain, diarrhea, constipation, melena. : Denies dysuria, frequency, incontinence, hematuria, urinary retention. MUSCULOSKELETAL: denies weakness, joint pain, or bony pain SKIN: Denies rash, skin lesions, or other NEUROLOGIC: See HPI PSYCHIATRIC: No concerning psychosocial issues. 12 point review of systems is negative except for those stated above Patient History Medical History Anticoagulation adequate External hemorrhoid GERD (gastroesophageal reflux disease) Hearing impaired History of atrial fibrillation History of CVA (cerebrovascular accident) (~2014) Hyperglycemia Leg edema, left Low testosterone in male Pre-diabetes Recurrent ventricular tachycardia Rib lesion Sarcoid myocarditis Seizure disorder TIA (transient ischemic attack) Transverse myelitis Well adult exam Surgical History AICD (automatic cardioverter/defibrillator) present History of nasal surgery History of radiofrequency ablation procedure for cardiac arrhythmia History of surgery Hx of tonsillectomy Scrotal injury Social History household members: spouse Smoking Status: Former smoker alcohol intake: former Smoking Status: Former smoker Substance Use Type: does not use Exam Narrative Exam Narrative: GENERAL: [72] year old patient appears stated age. Well-developed patient, in mild distress. GCS 15 HEAD: Atraumatic. Normocephalic. EYES: Pupils equal round and reactive. Extraocular motions intact. No scleral icterus. No injection or drainage. ENT: Nose without bleeding, purulent drainage. Throat without erythema, tonsillar hypertrophy or exudate. Airway patent. NECK: Trachea midline. Non tender CARDIOVASCULAR: Regular rate and rhythm without murmurs, gallops, or rubs. RESPIRATORY: Clear to auscultation. Breath sounds equal bilaterally. No wheezes, rales, or rhonchi. GASTROINTESTINAL: Abdomen soft, non-tender, nondistended. EXTREMITIES: No edema or joint tenderness. BACK: Nontender without deformity or crepitance. No flank tenderness. NEURO: AOx3. SKIN: No rash or erythema of visible areas Initial Vital Signs Initial Vital Signs: Vital Signs Temperature 97.6 F 04/12/23 16:34 Pulse Rate 67 04/12/23 16:34 Respiratory Rate 16 04/12/23 16:34 Blood Pressure 201/103 H 04/12/23 16:34 Pulse Oximetry 98 04/12/23 16:34 Oxygen Delivery Method Room Air 04/12/23 16:34 Course Orders Ordered: ED Orders 04/12/23 17:56 Urine Drug Screen, Rapid Stat Reevaluation(s) Reevaluation #1: Patient feels significant improvement at recheck. Blood pressure now down to 166/77, patient at baseline symptomatically Time: 17:42 Vital Signs Vital signs: Vital Signs - 8 hr 04/12/23 18:30 04/12/23 19:00 Pulse Rate 66 65 Respiratory Rate 23 28 H Pulse Oximetry 95 96 Medical Decision Making Lab Data 04/12/23 17:00 04/12/23 17:00 Labs: Lab Results 04/12/23 04/12/23 04/12/23 Range/Units 17:00 17:00 17:00 WBC 7.7 (4.5-11.0) X10^3/uL RBC 4.48 L (4.5-5.9) X10^6/uL Hgb 14.9 (13.5-17.5) g/dL Hct 45.1 (41-53) % MCV 100.7 H (80-100) fL MCH 33.4 (26-34) PG MCHC 33.1 (30-36) % RDW 14.1 (11.6-14.8) % Plt Count 204 (150-400) X10^3/uL Neut % (Auto) 83.6 H (50-75) % Lymph % (Auto) 9.5 L (25-40) % [place] % (Auto) 6.3 (3-14) % Eos % (Auto) 0.3 L (2-4) % Baso % (Auto) 0.3 (0-2) % Neut # (Auto) 6400 (2441-0444) /uL Lymph # (Auto) 700 L (9120-7718) /uL [place] # (Auto) 500 (0-900) /uL Eos # (Auto) 0 (0-450) /uL Baso # (Auto) 0 (0-100) /uL PT 12.9 H (10.1-12.7) SECONDS INR 1.1 (0.9-1.3) APTT 29 (26-36) SECONDS Sodium 141 (137-145) mmol/L Potassium 4.3 (3.4-5.1) mmol/L Chloride 101 (98-107) mmol/L Carbon Dioxide 36 H (22-32) mmol/L BUN 19 (9-20) mg/dL Creatinine 1.00 (0.66-1.25) mg/dL Estimated GFR > 60 (>60) mL/min BUN/Creatinine Ratio 19.0 (6-22) Glucose 100 (80-110) mg/dL Calcium 9.4 (8.4-10.2) mg/dL Total Bilirubin 0.5 (0.2-1.3) mg/dL AST 30 (17-59) IU/L ALT 35 (<50) IU/L Alkaline Phosphatase 62 (38-126) U/L Total Creatine Kinase 77 (55-170) U/L CK-MB (CK-2) TNP CK-MB (CK-2) Rel Index TNP Troponin I < 0.012 (0.01-0.034) ng/mL Total Protein 7.5 (6.3-8.2) g/dL Albumin 4.4 (3.5-5.0) g/dL Globulin 3.1 (1.7-4.1) g/dL Albumin/Globulin Ratio 1.4 (1.0-2.8) U Opiates 300ng/mL cut (Negative) Ur Oxycodone Screen (Negative) Urine Methadone Screen (Negative) Ur Barbiturates Screen (Negative) U Tricyclic Antidepress (Negative) Ur Phencyclidine Scrn (Negative) Ur Amphetamines Screen (Negative) U Methamphetamines Scrn (Negative) Ur MDMA Scrn (Ecstasy) (Negative) U Benzodiazepines Scrn (Negative) Urine Cocaine Screen (Negative) U Marijuana (THC) Screen (Negative) Ethyl Alcohol < 10 ( - 10) mg/dL 04/12/23 Range/Units 17:56 WBC (4.5-11.0) X10^3/uL RBC (4.5-5.9) X10^6/uL Hgb (13.5-17.5) g/dL Hct (41-53) % MCV (80-100) fL MCH (26-34) PG MCHC (30-36) % RDW (11.6-14.8) % Plt Count (150-400) X10^3/uL Neut % (Auto) (50-75) % Lymph % (Auto) (25-40) % [place] % (Auto) (3-14) % Eos % (Auto) (2-4) % Baso % (Auto) (0-2) % Neut # (Auto) (8015-1314) /uL Lymph # (Auto) (8302-5161) /uL [place] # (Auto) (0-900) /uL Eos # (Auto) (0-450) /uL Baso # (Auto) (0-100) /uL PT (10.1-12.7) SECONDS INR (0.9-1.3) APTT (26-36) SECONDS Sodium (137-145) mmol/L Potassium (3.4-5.1) mmol/L Chloride (98-107) mmol/L Carbon Dioxide (22-32) mmol/L BUN (9-20) mg/dL Creatinine (0.66-1.25) mg/dL Estimated GFR (>60) mL/min BUN/Creatinine Ratio (6-22) Glucose (80-110) mg/dL Calcium (8.4-10.2) mg/dL Total Bilirubin (0.2-1.3) mg/dL AST (17-59) IU/L ALT (<50) IU/L Alkaline Phosphatase (38-126) U/L Total Creatine Kinase (55-170) U/L CK-MB (CK-2) CK-MB (CK-2) Rel Index Troponin I (0.01-0.034) ng/mL Total Protein (6.3-8.2) g/dL Albumin (3.5-5.0) g/dL Globulin (1.7-4.1) g/dL Albumin/Globulin Ratio (1.0-2.8) U Opiates 300ng/mL cut Negative (Negative) Ur Oxycodone Screen Negative (Negative) Urine Methadone Screen Negative (Negative) Ur Barbiturates Screen Negative (Negative) U Tricyclic Antidepress Negative (Negative) Ur Phencyclidine Scrn Negative (Negative) Ur Amphetamines Screen Negative (Negative) U Methamphetamines Scrn Negative (Negative) Ur MDMA Scrn (Ecstasy) Negative (Negative) U Benzodiazepines Scrn Negative (Negative) Urine Cocaine Screen Negative (Negative) U Marijuana (THC) Screen Negative (Negative) Ethyl Alcohol ( - 10) mg/dL Urine Dip Bedside Urine Glucose Negative Bedside Urine Bilirubin - Negative Bedside Urine Ketone - Negative Urine Specific [place] 1.005 Bedside Urine Occult Blood - Negative Bedside Urine pH 7.0 Bedside Urine Protein - Negative Bedside Urine Urobilinogen - Negative Bedside Urine Nitrite - Negative Bedside Urine Leukocytes - Negative Esterase Point of care testing: Urine Dip Bedside Urine Glucose Negative Bedside Urine Bilirubin - Negative Bedside Urine Ketone - Negative Urine Specific [place] 1.005 Bedside Urine Occult Blood - Negative Bedside Urine pH 7.0 Bedside Urine Protein - Negative Bedside Urine Urobilinogen - Negative Bedside Urine Nitrite - Negative Bedside Urine Leukocytes - Negative Esterase [facility] Narrative Medical decision making narrative: CC: 72-year-old male with left side body ?tightness? and elevated blood pressure Complicating co-morbidities: Age, AFib, anticoagulation, defibrillator, prior stroke, seizures Data collected from: Patient Medical records reviewed: Prior notes reviewed in our EMR Differential considered, but not limited to: Hypertensive emergency versus stroke versus cardiac abnormality versus other Exam documented above, pertinent findings include: Lab Test results independently reviewed as above. Pertinent findings: No leukocytosis or left shift, no signs of anemia, electrolytes, renal function, LFTs and cardiac enzymes normal Independently reviewed EKG as above Imaging studies independently reviewed: CT of the head and CTA of head and neck without acute findings Re-evaluations: patient with complete improvement when blood pressure improved. He remained at his baseline for the duration of the visit Discussion: patient presented with some vague complaints, largely feeling tight on his left side and noted elevated blood pressure. Soon after th eir arrival he had improvement in blood pressure without intervention in his symptoms had completely resolved. Multiple diagnoses considered including stroke, hypertensive emergency and other. History and physical exam are reassuring. At no point is he a tPA or interventional candidate given the time of onset, use of blood thinners and improvement of symptoms. That being said his symptoms are most consistent with hypertension given the on deniable temporal relationship between resolution of hypertension and his symptoms. He is a scheduled appointment with his primary care provider later in the week. I have given extensive return precautions including recurrence of numbness, tingling or weakness, headache, blurred vision, chest pain or other concerning symptoms. Disposition: see below, along with detailed discharge instructions that have been reviewed with patient as well as indications for ED re-evaluation and additional outpatient follow up Discharge Plan Departure Patient Disposition: Home Clinical Impression: Hypertension Qualifiers: Hypertension type: primary hypertension Qualified Code(s): I10 - Essential (primary) hypertension Instructions: DI for High Blood Pressure Activity Restrictions/Additional Instructions: *You have been diagnosed with [high blood pressure] *What to do: *Please continue to take your regular medications as directed. *Please follow up with your primary care provider in 2-3 days, call for an appointment. Let them know you were seen in the Emergency Department and that we ask that you be seen in follow up. We will electronically transmit a record of david tao's note if your PCP is in our system *Return to Emergency Department if you should have any new, worsening or concerning symptoms, such as [fever greater than 101 F, shaking chills, worsening pain, persistent vomiting or other bothersome symptoms] Prescriptions: No Action hydrocortisone [Anusol-HC] 2.5 % cream with perineal applicator 1 applic AL BID-QID PRN (Reason: hemorrhoids) Qty: 30 2RF (DME) NEEDLE 20G X 1 INCH See Rx Instructions .Route .MEDSUPPLY Qty: 12 3RF Rx Instructions: USE TO ADMINISTER TESTOSTERONE INJECTION ONCE EVERY 2 WKS. Eliquis 5 mg tablet 5 mg PO BID carvedilol 3.125 mg tablet 6.25 mg PO BID Rx Instructions: must administer with a meal/food testosterone cypionate [Depo-Testosterone] 200 mg/mL oil 160 mg IM Q2W Qty: 10 0RF Rx Instructions: Must last 20 weeks gabapentin 400 mg capsule 400 mg PO QID baclofen 20 mg tablet 20 mg PO .COMPLEX Rx Instructions: 20 mg PO 2 tab QAM, 2 tabs at Noon, 1 tab 1700, and 1 tab QHS; prednisone 10 mg tablet 30 mg PO QAM sulfamethoxazole-trimethoprim 400-80 mg Tablet 1 tab PO BEDTIME levetiracetam [Keppra] 500 mg Tablet 500 mg PO BID pantoprazole 40 mg Tablet,Delayed Release (Dr/Ec) 40 mg PO BID rosuvastatin 5 mg Tablet 5 mg PO DAILY amiodarone 200 mg tablet 200 mg PO QPM acetaminophen 500 mg Tablet 1,000 - 1,500 mg PO BID PRN (Reason: Pain) methotrexate sodium 2.5 mg Tablet 10 mg PO QWEEK Patient Comments: Takes every Friday folic acid 1 mg Tablet 1 mg PO DAILY gabapentin 100 mg Capsule 100 mg PO BEDTIME Patient Comments: Occasional additional 300mg @ 0300 prn multivitamin Tablet 1 tab PO BID Referrals: Aristides Lewis DO [Primary Care Provider] - Stand Alone Forms: Patient Portal/API
[2023-04-12 17:13] LABS: Add Manual Diff / Slide Review NO; Basophils Absolute Auto 0 /uL (0-100); Basophils Percent Auto 0.3 % (0-2); Eosinophils Absolute Auto 0 /uL (0-450); Eosinophils Percent Auto 0.3 % (2-4); Hematocrit 45.1 % (41-53); Hemoglobin 14.9 g/dL (13.5-17.5); Lymphocytes Absolute Auto 700 /uL (1100-4500); Lymphocytes Percent Auto 9.5 % (25-40); Mean Corpuscular HGB Conc 33.1 % (30-36); Mean Corpuscular Hemoglobin 33.4 PG (26-34); Mean Corpuscular Volume 100.7 fL (80-100); Monocytes Absolute Auto 500 /uL (0-900); Monocytes Percent Auto 6.3 % (3-14); Neutrophils Absolute Auto 6400 /uL (1500-7000); Neutrophils Percent Auto 83.6 % (50-75); Platelet Count 204 X10^3/uL (150-400); Red Blood Cell Count 4.48 X10^6/uL (4.5-5.9); Red Cell Distribution Width 14.1 % (11.6-14.8); White Blood Cell Count 7.7 X10^3/uL (4.5-11.0)
[2023-04-12 17:19] LABS: INR 1.1 (0.9-1.3); Prothrombin Time 12.9 SECONDS (10.1-12.7)
[2023-04-12 17:21] LABS: PTT Partial Thromboplastin Tim 29 SECONDS (26-36)
[2023-04-12 17:24] LABS: Alanine Aminotransferase 35 IU/L (<50); Albumin 4.4 g/dL (3.5-5.0); Albumin Globulin Ratio 1.4 (1.0-2.8); Alkaline Phosphatase 62 U/L (38-126); Aspartate Aminotransferase 30 IU/L (17-59); Bilirubin Total 0.5 mg/dL (0.2-1.3); Blood Urea Nitrogen 19 mg/dL (9-20); Calcium 9.4 mg/dL (8.4-10.2); Carbon Dioxide 36 mmol/L (22-32); Chloride 101 mmol/L (98-107); Creatine Kinase 77 U/L (55-170); Estimated Glomerular Filt Rate > 60 mL/min (>60); Globulin 3.1 g/dL (1.7-4.1); Glucose 100 mg/dL (80-110); HEMOLYSIS < 15 (0-50); Potassium 4.3 mmol/L (3.4-5.1); Sodium 141 mmol/L (137-145); Total Protein 7.5 g/dL (6.3-8.2)
[2023-04-12 17:35] LABS: Troponin I < 0.012 ng/mL (0.01-0.034)
[2023-04-12 17:36] LABS: Ethanol (ETOH) < 10 mg/dL
[2023-04-12 18:10] LABS: UR Morphine/Opiate cutoff 300 Negative (Negative); Ur Creatinine Normal (Normal); Ur Specific Gravity Normal (Normal); Urine Amphetamines Negative (Negative); Urine Barbiturates Negative (Negative); Urine Benzodiazepines Negative (Negative); Urine Cocaine Negative (Negative); Urine MDMA Negative (Negative); Urine Methadone Negative (Negative); Urine Methamphetamines Negative (Negative); Urine Oxycodone Negative (Negative); Urine Phencyclidine Negative (Negative); Urine Tetrahydrocannabinol Negative (Negative); Urine Tricyclic Antidepressant Negative (Negative); Urine pH Normal (Normal)
== END 2023-04-12 19:02 | disposition home or self-care (01) ==
PROVIDERS: Emergency Provider Emergency Medicine; PCP Family Medicine
DX: I10 Essential (primary) hypertension (principal); R53.1 Weakness; Z79.01 Long term (current) use of anticoagulants; Z79.899 Other long term (current) drug therapy
CPT/HCPCS: 36415; 70450; 70496; 70498; 80053; 80305; 80320; 81003; 82550; 84484; 85025; 85610; 85730; 93005; 93010; 99284; Q9967

== ENCOUNTER → 2024-02-05 09:24 | Outpatient (CLI) | payer MEDICARE, OTHER, SELFPAY ==
[2023-02-24 10:21] VITALS: BMI 31.4
[2024-02-10 10:09] LABS: Percent Free Testosterone 2.41 % (1.50-4.20); Testosterone Free 11.26 ng/dL (5.00-21.00); Testosterone Total 467.2 ng/dL (264.0-916.0)
== END ==
PROVIDERS: PCP Family Medicine; Referring Provider Family Medicine; Visit Provider Family Medicine
DX: R79.89 Other specified abnormal findings of blood chemistry (principal)
CPT/HCPCS: 36415; 84402; 84403

== ENCOUNTER → 2025-02-10 12:49 | Outpatient (CLI) | payer MEDICARE, OTHER, SELFPAY ==
[2023-02-24 10:21] VITALS: BMI 31.4
[2025-02-10 14:50] LABS: Add Manual Diff / Slide Review NO; Basophils Absolute Auto 0 /uL (0-100); Basophils Percent Auto 0.3 % (0-2); Eosinophils Absolute Auto 100 /uL (0-450); Eosinophils Percent Auto 1.3 % (2-4); Hematocrit 47.7 % (41-53); Hemoglobin 15.7 g/dL (13.5-17.5); Lymphocytes Absolute Auto 1600 /uL (1100-4500); Mean Corpuscular HGB Conc 32.9 % (30-36); Mean Corpuscular Hemoglobin 31.7 PG (26-34); Mean Corpuscular Volume 96.4 fL (80-100); Monocytes Absolute Auto 700 /uL (0-900); Monocytes Percent Auto 9.5 % (3-14); Neutrophils Absolute Auto 5100 /uL (1500-7000); Neutrophils Percent Auto 67.9 % (50-75); Platelet Count 189 X10^3/uL (150-400); Red Blood Cell Count 4.96 X10^6/uL (4.5-5.9); Red Cell Distribution Width 13.8 % (11.6-14.8); White Blood Cell Count 7.6 X10^3/uL (4.5-11.0)
[2025-02-10 15:32] LABS: Alanine Aminotransferase 30 IU/L (<50); Albumin 4.6 g/dL (3.5-5.0); Albumin Globulin Ratio 1.8 (1.0-2.8); Alkaline Phosphatase 91 U/L (38-126); Aspartate Aminotransferase 37 IU/L (17-59); BUN Creatinine Ratio 19.4 (6-22); Blood Urea Nitrogen 21 mg/dL (9-20); Calcium 9.8 mg/dL (8.4-10.2); Carbon Dioxide 28 mmol/L (22-32); Chloride 100 mmol/L (98-107); Cholesterol 134 mg/dL (140-199); Estimated Glomerular Filt Rate > 60 mL/min (>60); Globulin 2.5 g/dL (1.7-4.1); Glucose 79 mg/dL (80-110); HDL Cholesterol 39 mg/dL (40-60); HEMOLYSIS < 15 (0-50); LDL Cholesterol Calculated 72 mg/dL (<100); Potassium 4.6 mmol/L (3.4-5.1); Sodium 137 mmol/L (137-145); Total Protein 7.1 g/dL (6.3-8.2); Triglycerides 114 mg/dL (35-150)
[2025-02-10 16:02] LABS: Prostate Specific Antigen Scrn 1.41 ng/mL (0.1-4.0)
[2025-02-28 12:40] LABS: Percent Free Testosterone 4.72 % (1.50-4.20); Testosterone Free 85.41 ng/dL (5.00-21.00)
== END ==
PROVIDERS: PCP Family Medicine; Referring Provider Family Medicine; Visit Provider Family Medicine
DX: E78.00 Pure hypercholesterolemia, unspecified (principal); R73.9 Hyperglycemia, unspecified; Z12.5 Encounter for screening for malignant neoplasm of prostate; R73.03 Prediabetes; R79.89 Other specified abnormal findings of blood chemistry; Z86.79 Personal history of other diseases of the circulatory system
CPT/HCPCS: 36415; 80053; 80061; 83036; 84402; 84403; 85025; G0103

== ENCOUNTER → 2025-05-23 13:08 | Outpatient (CLI) | payer MEDICARE, OTHER, SELFPAY ==
[2023-02-24 10:21] VITALS: BMI 31.4
[2025-05-23 13:37] LABS: Add Manual Diff / Slide Review NO; Hematocrit 45.5 % (41-53); Hemoglobin 15.4 g/dL (13.5-17.5); Lymphocytes Absolute Auto 1100 /uL (1100-4500); Mean Corpuscular HGB Conc 33.9 % (30-36); Mean Corpuscular Hemoglobin 32.5 PG (26-34); Mean Corpuscular Volume 95.7 fL (80-100); Platelet Count 186 X10^3/uL (150-400)
[2025-05-23 13:56] LABS: Alanine Aminotransferase 27 IU/L (<50); Albumin 4.6 g/dL (3.5-5.0); Albumin Globulin Ratio 1.8 (1.0-2.8); Alkaline Phosphatase 95 U/L (38-126); Blood Urea Nitrogen 18 mg/dL (9-20); Calcium 9.5 mg/dL (8.4-10.2); Carbon Dioxide 27 mmol/L (22-32); Chloride 103 mmol/L (98-107); Estimated Glomerular Filt Rate > 60 mL/min (>60); Globulin 2.6 g/dL (1.7-4.1); Glucose 93 mg/dL (70-99); HEMOLYSIS < 15 (0-50); Potassium 4.5 mmol/L (3.4-5.1); Sodium 138 mmol/L (137-145); Total Protein 7.2 g/dL (6.3-8.2)
== END ==
PROVIDERS: Internal Medicine Cardiovascular Disease; PCP Family Medicine; Referring Provider Family Medicine; Visit Provider Family Medicine
DX: Z12.5 Encounter for screening for malignant neoplasm of prostate (principal); E78.5 Hyperlipidemia, unspecified; R79.89 Other specified abnormal findings of blood chemistry; G40.909 Epilepsy, unspecified, not intractable, without status epilepticus
CPT/HCPCS: 36415; 80053; 84402; 84403; 85025; G0103

== ENCOUNTER → 2025-09-13 12:34 | Outpatient (CLI) | payer MEDICARE, OTHER, SELFPAY ==
[2025-07-26 08:16] VITALS: BMI 31.4
--- NOTE | 2025-09-13 12:36 | DI.RAD.S_ITS ---
PROCEDURE: XR LUMBAR SPINE MIN 4V
== END ==
PROVIDERS: PCP Family Medicine; Referring Provider Physical Medicine & Rehabilitation; Visit Provider Physical Medicine & Rehabilitation
DX: M47.816 Spondylosis without myelopathy or radiculopathy, lumbar region (principal); M54.9 Dorsalgia, unspecified
CPT/HCPCS: 72110

== ENCOUNTER 2025-10-05 11:06 | Outpatient (CLI) | payer MEDICARE, OTHER, SELFPAY ==
[2025-07-26 08:16] VITALS: BMI 31.4
[2025-10-05 11:45] VITALS: BP 121/78; PULSE 62; RESP 16; TEMP 36.5; O2SAT 97
[2025-10-05 12:15] VITALS: BP 114/72; PULSE 66; RESP 16; O2SAT 96
[2025-10-05] MEDS: LIDOCAINE 1% (PF) 5 ML 10 ML INJ (12:17)
[2025-10-05 12:20] VITALS: BP 126/81; PULSE 60; RESP 16; O2SAT 96
[2025-10-05 12:27] VITALS: BP 127/76; PULSE 67; RESP 16; O2SAT 98
--- NOTE | 2025-10-05 15:51 | PM.PROC.IR.1 ---
Date/Time/Diagnoses Date of procedure: 10/05/25 Time of procedure: 12:00 Pre-procedure diagnosis: Lumbosacral radiculopathy Post-procedure diagnosis: same Procedure Notes Procedure: Interlaminar epidural steroid injection L5-S1 Indications: Lumbosacral radiculopathy Physician: Reece Matthew Total sedation minutes: 0 Complications: none Procedure in detail & Post-procedure care: Patient is here for the planned procedure today as noted. No significant change since the last office visit. For additional clinical scenario please see those office notes. Focused exam: Vital signs reviewed as charted on intake. Gen: Well developed. No acute distress. CV: RRR, no M/R/G Chest: Non-labored breathing, CTAB. Psych: Alert and well-oriented. Mood/Affect: normal. Patient suitable for the planned procedure today: Yes === The following procedure was performed in the office today: Lumbar Epidural Steroid Injection with fluoroscopic guidance - Interlaminar approach (08977) Levels Treated: [L5-S1] Approach: interlaminar Soft tissue: [1% lidocaine 2 mL] Test dose: [1% lidocaine 1 mL] Injectate: 0.75 mL of Depo-Medrol (80mg/mL) in 1.25 mL 1% lidocaine and 1 mL normal saline Fluoroscopy Agent: Isovue 300-M 1.5 mL Notes: Note he is on Eliquis, held for the procedure, last dose 10/02/2025 evening. May resume 6 hours postprocedure. 3.5 in 20 gauge Touhy needle utilized an adequate. Left paramedian approach. Preprocedure pain 9/10, postprocedure pain 5/10. Procedure: After discussing the risks, benefits, and alternatives to the procedure, the patient expressed understanding and wished to proceed. The risks include but are not limited to infection, allergic reaction, nerve damage, stroke, paralysis, epidural hematoma, syncope, headache, respiratory or cardiac arrest, spinal cord injury, and scar formation. Informed consent was obtained and all patient questions were answered. The patient was brought to the procedure suite and placed in the prone position. A pre-procedural pause was conducted to verify: correct patient identity, procedure to be performed and as applicable, correct side and site, correct patient position, and any special requirements. Using a paramedian approach from the side noted above, the region overlying the target was localized under fluoroscopic visualization and the soft tissues overlying this structure were infiltrated with the anesthetic listed above. With fluoroscopic guidance, a #20 gauge Tuohy needle (unless otherwise noted) was inserted into the epidural space using a paramedian approach. The epidural space was localized utilizing intermittent multiplanar fluoroscopic guidance and loss of resistance technique. After negative aspiration, the contrast noted above was injected into the epidural space and the flow of contrast was observed, confirming epidural spread without evidence of intravascular or intrathecal spread. Multi-planar radiographs were obtained for documentation purposes. A test dose of lidocaine was injected into the above noted epidural space, and the patient was observed for 30-60 seconds. No sensory deficits were reported and normal lower extremity motor function was noted. Subsequently, the injectate as noted above was administered into the level noted above. The patient tolerated the procedure well and was discharged after an appropriate period of observation. If there are any complications, the patient was instructed to call us. The patient is to follow-up with the requesting provider in 2-3 weeks. This note was compiled using voice recognition software and therefore may contain typos. Please contact the author with any questions or concerns.
== END 2025-10-05 12:33 | disposition home or self-care (01) ==
LOC: RAD 11:07
PROVIDERS: PCP Family Medicine; Referring Provider Family Medicine; Visit Provider Physical Medicine & Rehabilitation
DX: M54.17 Radiculopathy, lumbosacral region (principal)
CPT/HCPCS: 62323; J1010